=== PATIENT | male | born 1950 | race Caucasian/White ===

== ENCOUNTER 2019-09-07 08:39 | Day surgery (SDC) | payer MEDICARE, MEDICAID ==
[~2019-09-07 08:39] MED LIST: Lactated Ringers 1,000 ML IV SCH; Lidocaine 1%/Sod Bicarbonate in NS 8.4% 1 ML Syringe IDERM PRN; Sodium Chloride 0.9% 10 ML Syringe FLUSH PRN
--- NOTE | 2019-09-07 09:08 | PCM.PREANE ---
Preanesthetic Assessment - Anesthesia/Transfusion/Family Hx Anesthesia History: Prior Anesthesia Without Reaction - Review of Systems General: No Symptoms Pulmonary: No Symptoms Cardiovascular: No Symptoms Gastrointestinal: No Symptoms Neurological: Pre-Existing Deficit, Other (patient is at his baseline cognitive and neuromotor status) - Physical Assessment NPO Status Date: 09/06/19 NPO Status Time: 21:00 ASA Class: 3 Mental Status: Other (patient at his baseline cognitive status) Airway Class: Mallampati = 2 Dentition: Reports: [place](s), Broken Tooth/Teeth, Caries Thyro-Mental Finger Breadths: 3 Mouth Opening Finger Breadths: 3 ROM/Head Extension: Limited/Partial Lungs: Clear to Auscultation, Normal Respiratory Effort - Allergies Allergies/Adverse Reactions: Allergies Allergy/AdvReac Type Severity Reaction Status Date / Time acetaminophen Allergy Anaphylactic Verified 09/06/19 14:21 Shock - Blood Blood Available: No - Acknowledgements Anesthesia Type Planned: MAC Pt an Appropriate Candidate for the Planned Anesthesia: Yes Alternatives and Risks of Anesthesia Discussed w Pt/Guardian: Yes Pt/Guardian Understands and Agrees with Anesthesia Plan: Yes PreAnesthesia Questionnaire HEENT History: Reports: Impaired Vision Other HEENT History: wears glasses, myopia, presbyopia Cardiovascular History: Reports: Blood Clots/VTE/DVT, High Cholesterol Gastrointestinal History: Reports: Chronic Constipation, Hemorrhoids Genitourinary History: Reports: BPH, Chronic Renal Insuffiency, Other (See Below ) Other Genitourinary History: neurogenic bladder Musculoskeletal History: Reports: Other (See Below) Other Musculoskeletal History: abnormal gait, joint contracture, spastic hemiplegia Neurological History: Reports: Brain Injury, Cerebral Palsy, Head Trauma, Seizure Psychiatric History: Reports: Bipolar, Dementia, Depression, Other (See Below) Other Psychiatric History: Exhibitionism, insomnia Endocrine/Metabolic History: Reports: Hypothyroidism Hematologic History: Reports: None Dermatologic History: Reports: Other (See Below) Other Dermatologic History: dermatophytosis, onchomycosis - Past Surgical History Head Surgeries/Procedures: Reports: None HEENT Surgical History: Reports: None Cardiovascular Surgical History: Reports: None Respiratory Surgical History: Reports: None GI Surgical History: Reports: Colonoscopy Female Surgical History: Reports: None Male Surgical History: Reports: None Endocrine Surgical History: Reports: None Neurological Surgical History: Reports: None Musculoskeletal Surgical History: Reports: None Oncologic Surgical History: Reports: None Dermatological Surgical History: Reports: None - HOME MEDS Home Medications: Home Meds Finasteride 5 mg PO DAILY 10/03/16 [History] Levothyroxine [Synthroid] 50 mcg PO ACBREAKFAST 10/03/16 [History] OLANZapine [ZyPREXA] 10 mg PO DAILY 10/03/16 [History] Tamsulosin HCl [Flomax] 0.4 mg PO DAILY 10/03/16 [History] Baclofen 10 mg PO TID 09/06/19 [History] Bisacodyl 5 mg PO DAILY PRN 09/06/19 [History] Cyanocobalamin (Vitamin B12) [Vitamin B12] 1,000 mcg SQ Q30D 09/06/19 [History] Donepezil HCl 10 mg PO BEDTIME 09/06/19 [History] Eucalyptus Oil/Menthol/Camphor [Vicks Vaporub Ointment] 1 dose TOP ASDIRECTED PRN 09/06/19 [History] Mineral Oil/Petrolatum,White [Dermacerin] 1 dose TOP BID 09/06/19 [History] OXcarbazepine [Trileptal] 300 mg PO DAILY 09/06/19 [History] Simethicone 80 mg PO BID 09/06/19 [History] atorvaSTATin [Lipitor] 10 mg PO DAILY 09/06/19 [History] traZODone HCl [Trazodone HCl] 50 mg PO BEDTIME 09/06/19 [History] - CURRENT (IN HOUSE) MEDS Current Meds: Current Medications Lactated Ringer's (Ringers, Lactated) 1,000 mls @ 125 mls/hr IV ASDIRECTED DONNIE Stop: 09/07/19 23:00 Lidocaine/Sodium Bicarbonate (Buffered Lidocaine 1% In Ns 8.4%) 0.25 ml IDERM ONETIME PRN PRN Reason: Prior to IV Start Stop: 09/08/19 18:00 Sodium Chloride (Saline Flush) 10 ml FLUSH ASDIRECTED PRN PRN Reason: Keep Vein Open Stop: 09/08/19 18:00
[2019-09-07] MEDS ORDERED: Propofol 200 MG/20 ML SDV ONE (09:18)
[2019-09-07] MEDS ORDERED: Lidocaine 1% 2 ML ONE (09:19)
[2019-09-07] MEDS ORDERED: Glycopyrrolate 0.2 MG/ML SDV ONE ×2 (10:07→10:19)
--- NOTE | 2019-09-07 10:54 | PCM.OPNOTE ---
- General Post-Op/Procedure Note Date of Surgery/Procedure: 09/07/19 Operative Procedure(s): EGD and incomplete colonoscopy Findings: 1. gastritis with superficial erosion 2. poor prep Pre Op Diagnosis: anemia and positive FIT test Post-Op Diagnosis: same Anesthesia Technique: MAC Primary Surgeon: Letha Randolph Anesthesia Provider: Hal Garcia Snath Handle Assembler: Arnoldo Alfonso Reason Snath Handle Assembler Was Necessary: medical student Fluid Replacement, Intraop: 1,000 Output, Urine Amount: 0 EBL in mLs: 0 Complications: unable to complete colonoscopy due to very poor prep Condition: Good
--- NOTE | 2019-09-07 10:56 | PCM.PRNOTE ---
- Free Text/Narrative Note: Operative Report Date of Procedure: September 07, 2019 Pre Op Diagnosis: Anemia and positive FIT test Post-Op Diagnosis: Same Operative Procedures: 1. EGD with biopsy 2. Incomplete Colonoscopy Primary Surgeon: Letha Randolph MD Alteration Worker: Arnoldo Alfonso MS 3 Anesthesia Provider: Hal Garcia CRNA Anesthesia Technique: MAC IV Fluid Replacement, Intraop: 1000cc crystalloid Output, Urine Amount: 0cc EBL in mLs: 10cc Findings: Gastritis, poor prep Specimens: Gastric antrum Drain/Tubes: None Indication: The patient is an 68-year-old gentleman who presented to the clinic with ending this of anemia as well as positive fit test.. The patient is a resident in a shelter and did suffer a traumatic brain injury in the past. . The patient' s artery and was consented for a diagnostic EGD and colonoscopy. Risks of bleeding, and perforation were discussed, and written consent was obtained. Description of the procedure: The patient was taken back to the endoscopy suite, and placed in the left lateral decubitus position. A bite block was placed. The patient was sedated with MAC anesthesia. The Olympus video endoscope was inserted into the oropharynx and guided under direct vision into the esophagus, stomach, and duodenum. The gastric antrum was inspected and cold biopsy forceps were used to take tissue samples for H. pylori. The duodenal bulb and second portion of the duodenum were unremarkable. The scope was withdrawn to the stomach and retroflexed. There was no increased fluid, food or secretions in the upper gastrointestinal tract. There were findings of diffuse erythema. There were changes consistent with gastritis. A 1-2 mm superficial erosion was also noted in the body of the stomach. No ulcers were noted. The scope was withdrawn to the esophagus. No Barretts esophagus changes were noted. The endoscope was then withdrawn Next, anorectal examination was performed. No lesions, masses or hemorrhoids were noted externally or on palpation. The scope was placed into the rectum and we encountered liquid stool throughout the rectum. The scope was advanced to the descending colon however there was diffuse stool covering the entire mucosa. The scope was withdrawn and the procedure terminated. The patient tolerated the procedure very well. Complications: None apparent Condition: The patient was transported to PACU in stable condition. We discussed with the patient's guardian the poor preparation. We will follow up the pathology and start the patient on PPI acid suppression. We will consider further intervention based on how the patient improves. Letha Randolph MD General Surgery
--- NOTE | 2019-09-07 11:02 | PCM48HPAN ---
Post Anesthesia Note - EVALUATION WITHIN 48HRS OF ANESTHETIC Vital Signs in Normal Range: Yes Patient Participated in Evaluation: Yes Respiratory Function Stable: Yes Airway Patent: Yes Cardiovascular Function Stable: Yes Hydration Status Stable: Yes Pain Control Satisfactory: Yes Nausea and Vomiting Control Satisfactory: Yes Mental Status Recovered: Yes Vital Signs: Last Vital Signs Temp 98.2 F 09/07/19 10:48 Pulse 72 09/07/19 10:52 Resp 13 09/07/19 10:52 BP 101/76 09/07/19 10:52 Pulse Ox 98 09/07/19 10:52
[2019-09-07 12:06] VITALS: BP 138/86; PULSE 78
== END 2019-09-07 11:46 ==
LOC: JD.SDS 08:39
PROVIDERS: ATTEND Surgery
DX: D64.9 Anemia, unspecified (principal); R19.5 Other fecal abnormalities; K29.30 Chronic superficial gastritis without bleeding; B96.81 Helicobacter pylori [H. pylori] as the cause of diseases classified elsewhere; E03.9 Hypothyroidism, unspecified; F03.91 Unspecified dementia, unspecified severity, with behavioral disturbance; E78.49 Other hyperlipidemia; R47.1 Dysarthria and anarthria; N18.2 Chronic kidney disease, stage 2 (mild); N40.0 Benign prostatic hyperplasia without lower urinary tract symptoms; F32.9 Major depressive disorder, single episode, unspecified; Z80.0 Family history of malignant neoplasm of digestive organs; Z88.6 Allergy status to analgesic agent
CPT/HCPCS: 43239; 45330; J2001; J2704; J3490; J7120; 00813

== ENCOUNTER 2019-09-08 03:19 | Emergency (ER) | payer MEDICARE, MEDICAID ==
[2019-09-08] MEDS ORDERED: Sodium Chloride 0.9% 10 ML Syringe FLUSH PRN (03:36)
[2019-09-08] MEDS ORDERED: Sodium Chloride 0.9% 1,000 ML IV STA (03:36)
[2019-09-08] MEDS ORDERED: Ondansetron 4 MG/2 ML SDV IVPUSH ONE (03:36)
[2019-09-08] MEDS ORDERED: HYDROmorphone 0.5 MG/0.5 ML Syringe IVPUSH ONE (03:38)
[2019-09-08 03:39] VITALS: BP 126/66; PULSE 72
--- NOTE | 2019-09-08 05:21 | EDM.PDOC ---
ED HPI GENERAL MEDICAL PROBLEM - General Chief Complaint: Gastrointestinal Problem Stated Complaint: [facility] Time Seen by Provider: 09/08/19 03:32 Source of Information: Reports: EMS, Family, Shelter Records, Old Records History Limitations: Reports: Other (The patient is in the Geripsych unit and cannot talk) - History of Present Illness INITIAL COMMENTS - FREE TEXT/NARRATIVE: The patient presents by [facility] for abdominal pain, nausea and vomiting. The patient had an EGD done yesterday by Dr Wells and early this morning he had 4 episodes of vomiting. He also appears to be uncomfortable. He is in the [facility] at the senior care and does not talk much. He has no fever. He has no diarrhea or bowel movement. Onset: Gradual Duration: Hour(s): Location: Reports: Abdomen Severity: Moderate Improves with: Reports: None Worsens with: Reports: None Associated Symptoms: Reports: Nausea/Vomiting. Denies: Cough, Fever/Chills - Related Data Allergies Allergy/AdvReac Type Severity Reaction Status Date / Time acetaminophen Allergy Anaphylactic Verified 09/08/19 03:26 Shock Home Meds: Home Meds Finasteride 5 mg PO DAILY 10/03/16 [History] Levothyroxine [Synthroid] 50 mcg PO ACBREAKFAST 10/03/16 [History] OLANZapine [ZyPREXA] 10 mg PO DAILY 10/03/16 [History] Tamsulosin HCl [Flomax] 0.4 mg PO DAILY 10/03/16 [History] Baclofen 10 mg PO TID 09/06/19 [History] Cyanocobalamin (Vitamin B12) [Vitamin B12] 1,000 mcg SQ Q30D 09/06/19 [History] Donepezil HCl 10 mg PO BEDTIME 09/06/19 [History] OXcarbazepine [Trileptal] 300 mg PO TID 09/06/19 [History] Simethicone 80 mg PO BID 09/06/19 [History] atorvaSTATin [Lipitor] 10 mg PO DAILY 09/06/19 [History] traZODone HCl [Trazodone HCl] 50 mg PO BEDTIME 09/06/19 [History] Omeprazole 20 mg PO ACBREAKFAST 30 Days #30 cap.sr 09/07/19 [Rx] Mineral Oil/Petrolatum,White [Dermacerin] 1 dose TP TID PRN 09/08/19 [History] Past Medical History HEENT History: Reports: Impaired Vision Other HEENT History: wears glasses, myopia, presbyopia Cardiovascular History: Reports: Blood Clots/VTE/DVT, High Cholesterol Respiratory History: Reports: None Gastrointestinal History: Reports: Chronic Constipation, Hemorrhoids Genitourinary History: Reports: BPH, Chronic Renal Insuffiency, Other (See Below ) Other Genitourinary History: neurogenic bladder [employer] History: Reports: None Musculoskeletal History: Reports: Other (See Below) Other Musculoskeletal History: abnormal gait, joint contracture, spastic hemiplegia Neurological History: Reports: Brain Injury, Cerebral Palsy, Head Trauma, Seizure Psychiatric History: Reports: Bipolar, Dementia, Depression, Other (See Below) Other Psychiatric History: Exhibitionism, insomnia Endocrine/Metabolic History: Reports: Hypothyroidism Hematologic History: Reports: None Immunologic History: Reports: None Oncologic (Cancer) History: Reports: None Dermatologic History: Reports: Other (See Below) Other Dermatologic History: dermatophytosis, onchomycosis - Past Surgical History Head Surgeries/Procedures: Reports: None HEENT Surgical History: Reports: None Cardiovascular Surgical History: Reports: None Respiratory Surgical History: Reports: None GI Surgical History: Reports: Colonoscopy, EGD Male Surgical History: Reports: None Endocrine Surgical History: Reports: None Neurological Surgical History: Reports: None Musculoskeletal Surgical History: Reports: None Oncologic Surgical History: Reports: None Dermatological Surgical History: Reports: None Social & Family History - Family History Family Medical History: Noncontributory - Tobacco Use Smoking Status *Q: Unknown Ever Smoked - Caffeine Use Caffeine Use: Reports: None Other Caffeine Use: unknown - Recreational Drug Use Recreational Drug Use: No ED ROS GENERAL - Review of Systems Review Of Systems: See Below Constitutional: Reports: No Symptoms HEENT: Reports: No Symptoms Respiratory: Reports: No Symptoms Cardiovascular: Reports: No Symptoms Endocrine: Reports: No Symptoms GI/Abdominal: Reports: Abdominal Pain, Nausea, Vomiting. Denies: Diarrhea : Reports: No Symptoms Musculoskeletal: Reports: No Symptoms Skin: Reports: No Symptoms ED EXAM, GI/ABD - Physical Exam Exam: See Below Exam Limited By: Other (He does not talk) General Appearance: Alert, No Apparent Distress Ears: Normal External Exam Nose: Normal Inspection Head: Atraumatic, Normocephalic Neck: Normal Inspection Respiratory/Chest: No Respiratory Distress, Lungs Clear, Normal Breath Sounds Cardiovascular: Regular Rate, Rhythm, No Edema, No Murmur GI/Abdominal Exam: Distended, Tender (Generalized tenderness), Other ( Hyperactive bowel sounds) Back Exam: Normal Inspection Course - Vital Signs Last Recorded V/S: Last Vital Signs Temp 98.7 F 09/08/19 03:28 Pulse 72 09/08/19 03:28 Resp 20 09/08/19 03:28 BP 126/66 09/08/19 03:28 Pulse Ox 95 09/08/19 03:28 - Orders/Labs/Meds Orders: Active Orders 24 hr Category Date Time Status Bladder Scan [RC] ASDIRECTED Care 09/08/19 05:00 Active Insert Alexandra Catheter [Insert Urinary Catheter] [OM.PC] Care 09/08/19 05:15 Ordered Q24H Peripheral IV Care [RC] . DIRECTED Care 09/08/19 03:37 Active Urinary Catheter Assessment [RC] ASDIRECTED Care 09/08/19 05:25 Active Abdomen Pelvis w Cont [CT] Stat Exams 09/08/19 03:36 Taken Sodium Chloride 0.9% [Saline Flush] Med 09/08/19 03:36 Active 10 ml FLUSH ASDIRECTED PRN ED Antiemetic Medication Reflex [OM.PC] Stat Oth 09/08/19 03:36 Ordered Peripheral IV Insertion Adult [OM.PC] Stat Oth 09/08/19 03:36 Ordered Medication Orders Sodium Chloride (Saline Flush) 10 ml FLUSH ASDIRECTED PRN PRN Reason: Keep Vein Open Last Admin: 09/08/19 03:53 Dose: 10 ml Labs: Laboratory Tests 09/08/19 09/08/19 09/08/19 Range/Units 03:28 03:28 05:12 WBC 7.69 (4.23-9.07) K/mm3 RBC 3.97 L (4.63-6.08) M/mm3 Hgb 12.3 L D (13.7-17.5) gm/dl Hct 35.7 L (40.1-51.0) % MCV 89.9 (79.0-92.2) fl MCH 31.0 (25.7-32.2) pg MCHC 34.5 (32.2-35.5) g/dl RDW Std Deviation 39.3 (35.1-43.9) fL Plt Count 223 (163-337) K/mm3 MPV 9.5 (9.4-12.3) fl Neut % (Auto) 77.1 H (34.0-67.9) % Lymph % (Auto) 11.3 L (21.8-53.1) % [place] % (Auto) 9.8 (5.3-12.2) % Eos % (Auto) 1.4 (0.8-7.0) Baso % (Auto) 0.4 (0.1-1.2) % Neut # (Auto) 5.93 H (1.78-5.38) K/mm3 Lymph # (Auto) 0.87 L (1.32-3.57) K/mm3 [place] # (Auto) 0.75 (0.30-0.82) K/mm3 Eos # (Auto) 0.11 (0.04-0.54) K/mm3 Baso # (Auto) 0.03 (0.01-0.08) K/mm3 Sodium 126 L D (136-145) mEq/L Potassium 4.1 (3.5-5.1) mEq/L Chloride 94 L (98-107) mEq/L Carbon Dioxide 28 (21-32) mEq/L Anion Gap 8.1 (5-15) BUN 8 (7-18) mg/dL Creatinine 0.7 (0.7-1.3) mg/dL Est Cr Clr Drug Dosing 86.92 mL/min Estimated GFR (MDRD) > 60 (>60) mL/min BUN/Creatinine Ratio 11.4 L (14-18) Glucose 93 (80-115) mg/dL Calcium 8.0 L (8.5-10.1) mg/dL Total Bilirubin 0.5 (0.2-1.0) mg/dL AST 21 (15-37) U/L ALT 29 (16-63) U/L Alkaline Phosphatase 120 H (46-116) U/L Total Protein 5.8 L (6.4-8.2) g/dl Albumin 3.3 L (3.4-5.0) g/dl Globulin 2.5 gm/dL Albumin/Globulin Ratio 1.3 (1-2) Lipase 64 L (73-393) U/L Urine Color Light yellow (Yellow) Urine Appearance Clear (Clear) Urine pH 7.5 (5.0-8.0) Ur Specific [place] 1.015 (1.005-1.030) Urine Protein Negative (Negative) Urine Glucose (UA) Negative (Negative) Urine Ketones Negative (Negative) Urine Occult Blood Trace-intact H (Negative) Urine Nitrite Negative (Negative) Urine Bilirubin Negative (Negative) Urine Urobilinogen 0.2 (0.2-1.0) Ur Leukocyte Esterase Negative (Negative) Urine RBC 0-5 (0-5) /hpf Urine WBC 0-5 (0-5) /hpf Ur Squamous Epith Cells Not seen (0-5) /hpf Urine Bacteria Few (FEW) /hpf Urine Mucus Rare (FEW) /hpf Meds: Medications Generic Name Dose Route Start Last Admin Trade Name Freq PRN Reason Stop Dose Admin Sodium Chloride 10 ml 09/08/19 03:36 09/08/19 03:53 Saline Flush FLUSH 10 ml ASDIRECTED PRN Administration Keep Vein Open Discontinued Medications Generic Name Dose Route Start Last Admin Trade Name Freq PRN Reason Stop Dose Admin Hydromorphone HCl 0.25 mg 09/08/19 03:38 09/08/19 03:54 Dilaudid IVPUSH 09/08/19 03:39 0.25 mg ONETIME ONE Administration Sodium Chloride 1,000 mls @ 1,000 mls/hr 09/08/19 03:36 09/08/19 03:53 Normal Saline IV 09/08/19 04:35 1,000 mls/hr .BOLUS STA Administration Ondansetron HCl 4 mg 09/08/19 03:36 09/08/19 03:54 Zofran IVPUSH 09/08/19 03:37 4 mg ONETIME ONE Administration - Re-Assessments/Exams Free Text/Narrative Re-Assessment/Exam: 09/08/19 05:17 I ordered an IV NS 1L bolus, zofran 4mg IV, dilaudid, labs, UA and a CT of his abdomen and pelvis with IV and oral contrast. He could not tolerate the oral contrast so the CT was done without oral contrast. He needs nector thickened liquids. His CT shows a 1.3cm hyerdense, round mass at the bladder base. Differential considerations include small focus of clot versus small enhancing bladder mass. Recommend correlation with urinalysis results and further work up. Colonic findings suspicious for diffuse ileus. Otherwise, no significant acute process. 09/08/19 05:21 His WBC was normal. His Hgb was a little low at 12.3. His Na was low at 126. His Ca is low at 8. His alk phos is elevated at 120. His lipase is low. 09/08/19 06:18 My nurse attempted a strait cath and she could not pass it. She then put a alexandra in without difficulty and he had about 1,700mls out. His UA shows no UTI. We will have to leave the alexandra in. He will need to follow up with urology for the bladder mass and the urinary retention. I called Dr Wells about the possible ileus and she said she did do a partial colonoscopy but she had to stop because he was not prepped very well. That would explain the air. He needs to pass gas. The patient feels much better. I will discharge him back to the senior care. Departure - Departure Time of Disposition: 06:25 Disposition: Home, Self-Care 01 Condition: Good Clinical Impression: Urinary retention, Bladder mass - Discharge Information *PRESCRIPTION DRUG MONITORING PROGRAM REVIEWED*: No *COPY OF PRESCRIPTION DRUG MONITORING REPORT IN PATIENT JONNA: No Referrals: PCP,Unknown [Primary Care Provider] - Morro Henriquez MD [Physician] - 1 Week Kevyn Salas MD [Consulting Physician] - 1 Week Forms: ED Department Discharge Additional Instructions: Steve has gas in his colon from the partial colonoscopy that was done. I talked with Dr Wells and the Steve needs to move around and pass some gas. Steve could not urinate and he had about 1,700mls of urine in his bladder. The alexandra cath with need to stay in for a few days. He also had a bladder mass that will need to be worked up. He should follow up with Dr Henriquez and Dr Garcia with urology. Please return if Steve is worse. - My Orders Last 24 Hours: My Active Orders 09/08/19 03:36 Abdomen Pelvis w Cont [CT] Stat Sodium Chloride 0.9% [Saline Flush] 10 ml FLUSH ASDIRECTED PRN ED Antiemetic Medication Reflex [OM.PC] Stat Peripheral IV Insertion Adult [OM.PC] Stat 09/08/19 03:37 Peripheral IV Care [RC] . DIRECTED 09/08/19 05:00 Bladder Scan [RC] ASDIRECTED 09/08/19 05:15 Insert Alexandra Catheter [Insert Urinary Catheter] [OM.PC] Q24H 09/08/19 05:25 Urinary Catheter Assessment [RC] ASDIRECTED - Assessment/Plan Last 24 Hours: My Active Orders 09/08/19 03:36 Abdomen Pelvis w Cont [CT] Stat Sodium Chloride 0.9% [Saline Flush] 10 ml FLUSH ASDIRECTED PRN ED Antiemetic Medication Reflex [OM.PC] Stat Peripheral IV Insertion Adult [OM.PC] Stat 09/08/19 03:37 Peripheral IV Care [RC] . DIRECTED 09/08/19 05:00 Bladder Scan [RC] ASDIRECTED 09/08/19 05:15 Insert Alexandra Catheter [Insert Urinary Catheter] [OM.PC] Q24H 09/08/19 05:25 Urinary Catheter Assessment [RC] ASDIRECTED
--- NOTE | 2019-09-09 10:38 | CT ---
CT abdomen and pelvis Technique: Multiple axial sections were obtained from above the dome of the diaphragm inferiorly through the pubic symphysis. Intravenous contrast was utilized. Oral contrast was not given. Comparison: No prior CT abdomen or pelvis exam. Previous renal ultrasound study of 05/11/13. Findings: Visualized lung bases show atelectasis without anything acute. Liver contains no focal abnormality. Small hiatal hernia is noted. Spleen appears within normal limits. Adrenal glands show no nodule. Kidneys show symmetric contrast enhancement without hydronephrosis or mass. Pancreas shows no discrete abnormality. Gallbladder contains no calcified gallstones. Mild increased stool and gas noted throughout the colon. No pelvic mass or adenopathy is seen. Aorta shows no aneurysm. No retroperitoneal adenopathy is noted. No free fluid or inflammatory change is seen. Appendix is not definitely visualized. Inferior bladder shows a slightly lobulated intraluminal mass measuring 1.3 cm. Similar abnormality seen on renal ultrasound and findings highly suspicious for transitional cell carcinoma. Impression: 1. Small intraluminal bladder mass which is seen on prior ultrasound as well. As mentioned above, this is highly suspicious for a 1.3 cm transitional cell carcinoma. 2. Mild increased stool and gas within the colon possibly due to mild colonic ileus. 3. No acute finding is otherwise appreciated on CT study of the abdomen and pelvis. Diagnostic code #9 This report was dictated in [place] Standard Time I agree with preliminary report from [facility], finalized on 09/08/19, 5:33 AM Central Time
== END 2019-09-08 07:08 | disposition home or self-care (01) ==
LOC: JD.ED 03:19
DX: N32.9 Bladder disorder, unspecified (principal); R33.9 Retention of urine, unspecified; N18.9 Chronic kidney disease, unspecified; Z79.899 Other long term (current) drug therapy; Z88.1 Allergy status to other antibiotic agents
CPT/HCPCS: 36415; 51702; 51798; 74177; 80053; 81001; 83690; 85025; 96361; 96374; 96375; 99284; J1170; J2405; J7030

== ENCOUNTER 2020-03-24 09:24 | Emergency (ER) | payer MEDICARE, MEDICAID ==
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
--- NOTE | 2020-03-24 10:54 | CR ---
Chest: AP view of the chest was obtained. Comparison: No prior chest imaging is available. Heart size is normal. Tortuous thoracic aorta is noted. Scoliosis is noted within the spine. Deformity of the left clavicle compatible with old healed fracture. Lungs are clear with no acute parenchymal change. Impression: 1. Findings as noted above. 2. Nothing acute is appreciated on AP chest x-ray. Diagnostic code #2 Study was dictated in MDT
[2020-03-24] MEDS ORDERED: cefTRIAXone 1 GM, Lidocaine 1% 2.1 ML IM ONE ×2 (11:21)
[2020-03-24 11:58] VITALS: BP 142/91; PULSE 83
== END 2020-03-24 12:00 | disposition home or self-care (01) ==
LOC: JD.ED 09:24
DX: N39.0 Urinary tract infection, site not specified (principal); E78.00 Pure hypercholesterolemia, unspecified; N18.9 Chronic kidney disease, unspecified; G80.9 Cerebral palsy, unspecified; F31.9 Bipolar disorder, unspecified; F03.90 Unspecified dementia, unspecified severity, without behavioral disturbance, psychotic disturbance, mood disturbance, and anxiety; R56.9 Unspecified convulsions; E03.9 Hypothyroidism, unspecified; Z79.899 Other long term (current) drug therapy; Z88.6 Allergy status to analgesic agent
CPT/HCPCS: 36415; 71045; 80053; 81001; 84484; 85025; 86140; 87086; 87088; 87186; 93005; 96372; 99285; J0696; J2001; 93010; 99283

== ENCOUNTER 2020-03-25 01:30 | Inpatient (IN) | payer MEDICARE, MEDICAID ==
--- NOTE | 2020-03-25 01:59 | EDM.PDOC ---
ED HPI GENERAL MEDICAL PROBLEM - General Chief Complaint: Fever Stated Complaint: [facility] Time Seen by Provider: 03/25/20 01:42 Source of Information: Reports: EMS, Snf Records History Limitations: Reports: Altered Mental Status, Language Barrier - History of Present Illness INITIAL COMMENTS - FREE TEXT/NARRATIVE: This is a 69-year-old male from [facility]. 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 Apparently was seen earlier today morning and diagnosed with a UTI. This evening apparently he was running a low-grade fever of 99.6 and his heart rate went up and his pulse ox dropped so they sent him to the ER for evaluation. The patient is unable to add to this history. He does not appear to be in distress. To have him on 2 L of oxygen and his pulse ox is running in the low 90s. He does not appear to be air hungry or excessively rapid respirations. Patient will nod his head yes and no but I am not certain he actually understands what I am saying. From yesterday morning his white count was 8.48 with 77.9 neutrophils his C-reactive protein was 11. His urine did show many bacteria and he was diagnosed with a UTI. He was given 1 g Rocephin IM prior to leaving the ER. - Related Data Allergies Allergy/AdvReac Type Severity Reaction Status Date / Time acetaminophen Allergy Severe Anaphylactic Verified 03/25/20 01:38 Shock aspirin Allergy Severe Cannot Verified 03/25/20 01:38 [From Excedrin Extra Remember Strength] caffeine Allergy Severe Cannot Verified 03/25/20 01:38 [From Excedrin Extra Remember Strength] Home Meds: Home Meds Finasteride 5 mg PO DAILY 10/03/16 [History] Levothyroxine [Synthroid] 50 mcg PO ACBREAKFAST 10/03/16 [History] OLANZapine [ZyPREXA] 10 mg PO DAILY 10/03/16 [History] Tamsulosin HCl [Flomax] 0.4 mg PO DAILY 10/03/16 [History] Baclofen 10 mg PO TID 09/06/19 [History] Donepezil HCl 10 mg PO BEDTIME 09/06/19 [History] OXcarbazepine [Trileptal] 300 mg PO TID 09/06/19 [History] Simethicone 80 mg PO BID 09/06/19 [History] atorvaSTATin [Lipitor] 10 mg PO DAILY 09/06/19 [History] traZODone HCl [Trazodone HCl] 100 mg PO BEDTIME 09/06/19 [History] Omeprazole 20 mg PO ACBREAKFAST 30 Days #30 cap.sr 09/07/19 [Rx] Mineral Oil/Petrolatum,White [Dermacerin] 1 dose TP TID PRN 09/08/19 [History] cephALEXin [Keflex] 500 mg PO BID #10 capsule 03/24/20 [Rx] Past Medical History HEENT History: Reports: Impaired Vision Other HEENT History: wears glasses, myopia, presbyopia Cardiovascular History: Reports: Blood Clots/VTE/DVT, High Cholesterol Respiratory History: Reports: None Gastrointestinal History: Reports: Chronic Constipation, Hemorrhoids Genitourinary History: Reports: BPH, Chronic Renal Insuffiency, Other (See Below) Other Genitourinary History: neurogenic bladder SEISMOGRAPHER History: Reports: None Musculoskeletal History: Reports: Other (See Below) Other Musculoskeletal History: abnormal gait, joint contracture, spastic hemiplegia Neurological History: Reports: Brain Injury, Cerebral Palsy, Head Trauma, Seizure Psychiatric History: Reports: Bipolar, Dementia, Depression, Other (See Below) Other Psychiatric History: Exhibitionism, insomnia Endocrine/Metabolic History: Reports: Hypothyroidism Hematologic History: Reports: None Immunologic History: Reports: None Oncologic (Cancer) History: Reports: None Dermatologic History: Reports: Other (See Below) Other Dermatologic History: dermatophytosis, onchomycosis - Past Surgical History Head Surgeries/Procedures: Reports: None HEENT Surgical History: Reports: None Cardiovascular Surgical History: Reports: None Respiratory Surgical History: Reports: None GI Surgical History: Reports: Colonoscopy, EGD Male Surgical History: Reports: None Endocrine Surgical History: Reports: None Neurological Surgical History: Reports: None Musculoskeletal Surgical History: Reports: None Oncologic Surgical History: Reports: None Dermatological Surgical History: Reports: None Social & Family History - Family History Family Medical History: Noncontributory - Caffeine Use Caffeine Use: Reports: None Other Caffeine Use: unknown ED ROS GENERAL - Review of Systems Review Of Systems: See Below Reason Not Obtained: The patient is not able to provide an ROS due to the TBI. ED EXAM, SEPSIS - Physical Exam Exam: See Below Exam Limited By: Language Barrier General Appearance: Alert, WD/WN, No Apparent Distress Eye Exam: Bilateral Eye: Normal Inspection Ears: Normal External Exam Nose: Normal Inspection Throat/Mouth: Normal Lips, No Airway Compromise, Other (Is constantly drooling and his dental hygiene is poor) Head: Normocephalic, Other (There is evidence of previous skull damage) Neck: Limited Range of Motion Respiratory/Chest: No Respiratory Distress, Other (Lungs have decreased breath sounds in all encarnacion but I do not hear any rales or crackles or wheezing.) Cardiovascular: Regular Rate, Rhythm, No Murmur GI/Abdominal Exam: Soft, Non-Tender Back: Decreased Range of Motion Extremities: Other (His upper extremities appeared to be normal, his lower extremities especially the right lower leg is somewhat swollen compared to the left lower leg. I do not see any obvious redness or infection.) Neurological: Alert, Other (I am not able to tell whether he is oriented in any way since he is not able to verbalize well.) Psychiatric: Flat Affect Skin: Warm, Dry Course - Vital Signs Last Recorded V/S: Last Vital Signs Temp 98.3 F 03/25/20 03:08 Pulse 106 H 03/25/20 01:39 Resp 17 03/25/20 01:39 BP 136/83 03/25/20 01:39 Pulse Ox 92 L 03/25/20 01:39 - Orders/Labs/Meds Orders: Active Orders 24 hr Category Date Time Status Chest 1V Frontal [CR] Stat Exams 03/25/20 03:42 Taken CORONAVIRUS COVID-19 [facility] [[facility]] Urgent Lab 03/25/20 04:15 Received CULTURE BLOOD [BC] Stat Lab 03/25/20 02:15 Received CULTURE BLOOD [BC] Stat Lab 03/25/20 02:25 Received Meropenem Premix [Meropenem] 500 mg Med 03/25/20 04:30 Ordered Premix Bag 1 bag IV Q8H Blood Culture x2 Reflex Set [OM.PC] Stat Oth 03/25/20 01:53 Ordered Medication Orders Meropenem/Sodium Chloride 500 (mg/ Premix) 50 mls @ 100 mls/hr IV Q8H DONNIE Labs: Laboratory Tests 03/25/20 03/25/20 03/25/20 Range/Units 02:15 02:15 02:15 WBC 7.74 (4.23-9.07) K/mm3 RBC 4.64 (4.63-6.08) M/mm3 Hgb 14.0 (13.7-17.5) gm/dl Hct 43.5 (40.1-51.0) % MCV 93.8 H (79.0-92.2) fl MCH 30.2 (25.7-32.2) pg MCHC 32.2 (32.2-35.5) g/dl RDW Std Deviation 43.3 (35.1-43.9) fL Plt Count 166 (163-337) K/mm3 MPV 10.8 (9.4-12.3) fl Neut % (Auto) 76.8 H (34.0-67.9) % Lymph % (Auto) 9.3 L (21.8-53.1) % Bertie % (Auto) 12.5 H (5.3-12.2) % Eos % (Auto) 1.0 (0.8-7.0) Baso % (Auto) 0.3 (0.1-1.2) % Neut # (Auto) 5.94 H (1.78-5.38) K/mm3 Lymph # (Auto) 0.72 L (1.32-3.57) K/mm3 Bertie # (Auto) 0.97 H (0.30-0.82) K/mm3 Eos # (Auto) 0.08 (0.04-0.54) K/mm3 Baso # (Auto) 0.02 (0.01-0.08) K/mm3 Manual Slide Review Abnormal smear Puncture Site ABG pH ABG pCO2 ABG pO2 ABG HCO3 ABG O2 Saturation ABG Base Excess Connor Test A-a Gradient O2 Delivery Device Oxygen Flow Rate FiO2 Tidal Volume PEEP Pressure Support Blood Gas Comments Sodium 147 H (136-145) mEq/L Potassium 3.5 (3.5-5.1) mEq/L Chloride 110 H (98-107) mEq/L Carbon Dioxide 27 (21-32) mEq/L Anion Gap 13.5 (5-15) BUN 27 H (7-18) mg/dL Creatinine 1.0 (0.7-1.3) mg/dL Est Cr Clr Drug Dosing 64.69 mL/min Estimated GFR (MDRD) > 60 (>60) mL/min BUN/Creatinine Ratio 27.0 H (14-18) Glucose 108 (80-115) mg/dL Lactic Acid 0.7 (0.4-2.0) mmol/L Calcium 9.1 (8.5-10.1) mg/dL Total Bilirubin 0.6 (0.2-1.0) mg/dL AST 11 L (15-37) U/L ALT 15 L (16-63) U/L Alkaline Phosphatase 126 H (46-116) U/L C-Reactive Protein 10.8 H* (<1.0) mg/dL NT-Pro-B Natriuret Pep (0-125) pg/mL Total Protein 6.8 (6.4-8.2) g/dl Albumin 3.1 L (3.4-5.0) g/dl Globulin 3.7 gm/dL Albumin/Globulin Ratio 0.8 L (1-2) Urine Color (Yellow) Urine Appearance (Clear) Urine pH (5.0-8.0) Ur Specific [place] (1.005-1.030) Urine Protein (Negative) Urine Glucose (UA) (Negative) Urine Ketones (Negative) Urine Occult Blood (Negative) Urine Nitrite (Negative) Urine Bilirubin (Negative) Urine Urobilinogen (0.2-1.0) Ur Leukocyte Esterase (Negative) Urine RBC (0-5) /hpf Urine WBC (0-5) /hpf Urine WBC Clumps (NOT SEEN) /hpf Ur Transition Epith Cell (0-5) Urine Bacteria (FEW) /hpf Urine Mucus (FEW) /hpf 03/25/20 03/25/20 03/25/20 Range/Units 02:15 02:46 03:15 WBC (4.23-9.07) K/mm3 RBC (4.63-6.08) M/mm3 Hgb (13.7-17.5) gm/dl Hct (40.1-51.0) % MCV (79.0-92.2) fl MCH (25.7-32.2) pg MCHC (32.2-35.5) g/dl RDW Std Deviation (35.1-43.9) fL Plt Count (163-337) K/mm3 MPV (9.4-12.3) fl Neut % (Auto) (34.0-67.9) % Lymph % (Auto) (21.8-53.1) % Bertie % (Auto) (5.3-12.2) % Eos % (Auto) (0.8-7.0) Baso % (Auto) (0.1-1.2) % Neut # (Auto) (1.78-5.38) K/mm3 Lymph # (Auto) (1.32-3.57) K/mm3 Bertie # (Auto) (0.30-0.82) K/mm3 Eos # (Auto) (0.04-0.54) K/mm3 Baso # (Auto) (0.01-0.08) K/mm3 Manual Slide Review Puncture Site Cancelled ABG pH Cancelled ABG pCO2 Cancelled ABG pO2 Cancelled ABG HCO3 Cancelled ABG O2 Saturation Cancelled ABG Base Excess Cancelled Connor Test Cancelled A-a Gradient Cancelled O2 Delivery Device Cancelled Oxygen Flow Rate Cancelled FiO2 Cancelled Tidal Volume Cancelled PEEP Cancelled Pressure Support Cancelled Blood Gas Comments Cancelled Sodium (136-145) mEq/L Potassium (3.5-5.1) mEq/L Chloride (98-107) mEq/L Carbon Dioxide (21-32) mEq/L Anion Gap (5-15) BUN (7-18) mg/dL Creatinine (0.7-1.3) mg/dL Est Cr Clr Drug Dosing mL/min Estimated GFR (MDRD) (>60) mL/min BUN/Creatinine Ratio (14-18) Glucose (80-115) mg/dL Lactic Acid (0.4-2.0) mmol/L Calcium (8.5-10.1) mg/dL Total Bilirubin (0.2-1.0) mg/dL AST (15-37) U/L ALT (16-63) U/L Alkaline Phosphatase (46-116) U/L C-Reactive Protein (<1.0) mg/dL NT-Pro-B Natriuret Pep 515 H (0-125) pg/mL Total Protein (6.4-8.2) g/dl Albumin (3.4-5.0) g/dl Globulin gm/dL Albumin/Globulin Ratio (1-2) Urine Color Lupe H (Yellow) Urine Appearance Slt cloudy H (Clear) Urine pH 6.0 (5.0-8.0) Ur Specific [place] > or = 1.030 (1.005-1.030) Urine Protein 3+ H (Negative) Urine Glucose (UA) Negative (Negative) Urine Ketones 3+ H (Negative) Urine Occult Blood 3+ H (Negative) Urine Nitrite Negative (Negative) Urine Bilirubin 1+ H (Negative) Urine Urobilinogen 1.0 (0.2-1.0) Ur Leukocyte Esterase 1+ H (Negative) Urine RBC 40-50 H (0-5) /hpf Urine WBC 20-30 H (0-5) /hpf Urine WBC Clumps Few (NOT SEEN) /hpf Ur Transition Epith Cell 0-5 (0-5) Urine Bacteria Many H (FEW) /hpf Urine Mucus Few (FEW) /hpf / Range/Units 03:25 WBC (4.23-9.07) K/mm3 RBC (4.63-6.08) M/mm3 Hgb (13.7-17.5) gm/dl Hct (40.1-51.0) % MCV (79.0-92.2) fl MCH (25.7-32.2) pg MCHC (32.2-35.5) g/dl RDW Std Deviation (35.1-43.9) fL Plt Count (163-337) K/mm3 MPV (9.4-12.3) fl Neut % (Auto) (34.0-67.9) % Lymph % (Auto) (21.8-53.1) % Bertie % (Auto) (5.3-12.2) % Eos % (Auto) (0.8-7.0) Baso % (Auto) (0.1-1.2) % Neut # (Auto) (1.78-5.38) K/mm3 Lymph # (Auto) (1.32-3.57) K/mm3 Bertie # (Auto) (0.30-0.82) K/mm3 Eos # (Auto) (0.04-0.54) K/mm3 Baso # (Auto) (0.01-0.08) K/mm3 Manual Slide Review Puncture Site Rt radial ABG pH 7.42 ABG pCO2 42.5 ABG pO2 57.0 L ABG HCO3 27 H ABG O2 Saturation 85.1 L ABG Base Excess 2.6 H Connor Test positive A-a Gradient 40 O2 Delivery Device Room air Oxygen Flow Rate FiO2 21.00 Tidal Volume PEEP Pressure Support Blood Gas Comments Sodium (136-145) mEq/L Potassium (3.5-5.1) mEq/L Chloride (98-107) mEq/L Carbon Dioxide (21-32) mEq/L Anion Gap (5-15) BUN (7-18) mg/dL Creatinine (0.7-1.3) mg/dL Est Cr Clr Drug Dosing mL/min Estimated GFR (MDRD) (>60) mL/min BUN/Creatinine Ratio (14-18) Glucose (80-115) mg/dL Lactic Acid (0.4-2.0) mmol/L Calcium (8.5-10.1) mg/dL Total Bilirubin (0.2-1.0) mg/dL AST (15-37) U/L ALT (16-63) U/L Alkaline Phosphatase (46-116) U/L C-Reactive Protein (<1.0) mg/dL NT-Pro-B Natriuret Pep (0-125) pg/mL Total Protein (6.4-8.2) g/dl Albumin (3.4-5.0) g/dl Globulin gm/dL Albumin/Globulin Ratio (1-2) Urine Color (Yellow) Urine Appearance (Clear) Urine pH (5.0-8.0) Ur Specific [place] (1.005-1.030) Urine Protein (Negative) Urine Glucose (UA) (Negative) Urine Ketones (Negative) Urine Occult Blood (Negative) Urine Nitrite (Negative) Urine Bilirubin (Negative) Urine Urobilinogen (0.2-1.0) Ur Leukocyte Esterase (Negative) Urine RBC (0-5) /hpf Urine WBC (0-5) /hpf Urine WBC Clumps (NOT SEEN) /hpf Ur Transition Epith Cell (0-5) Urine Bacteria (FEW) /hpf Urine Mucus (FEW) /hpf Meds: Medications Generic Name Dose Route Start Last Admin Trade Name Freq PRN Reason Stop Dose Admin Meropenem/Sodium Chloride 500 50 mls @ 100 mls/hr 03/25/20 04:30 mg/ Premix IV Q8H DONNIE Discontinued Medications Generic Name Dose Route Start Last Admin Trade Name Freq PRN Reason Stop Dose Admin Ceftriaxone Sodium 2 gm/ 100 mls @ 200 mls/hr 03/25/20 03:21 Sodium Chloride IV 03/25/20 03:50 ONETIME ONE Ceftriaxone Sodium 2 gm/ 100 mls @ 200 mls/hr 03/25/20 03:25 03/25/20 03:30 Sodium Chloride IV 03/25/20 03:54 200 mls/hr ONETIME ONE Administration - Re-Assessments/Exams Free Text/Narrative Re-Assessment/Exam: 03/25/20 03:29 The first blood gas that we got was venous so we will attempt to get an arterial blood gas this time. 03/25/20 04:[address] Cedeno regarding the patient's low oxygen level. I am not seeing why this would occur except does have a tremendous difficult time controlling his secretions. When he did cough and try to get a better breath lots of mucus came up from his throat. His BNP is only 515 his lactic acid is 0.7 white count is normal. His C-reactive protein is 10.8 which is slightly better than yesterday's. His neutrophils are 76.8. His urine still shows many bacteria and white cells. Dr. Cedeno agrees to admit the patient for further evaluation and treatment. Departure - Departure Time of Disposition: 04:31 Disposition: Admitted As Inpatient 68 Condition: Poor Clinical Impression: Hypoxemia, Hypernatremia, Elevated C-reactive protein Urinary tract infection Qualifiers: Urinary tract infection type: site unspecified Hematuria presence: without he maturia Qualified Code(s): N39.0 - Urinary tract infection, site not specified - Discharge Information Sepsis Event Note (ED) - Evaluation Sepsis Screening Result: No Definite Risk - Focused Exam Vital Signs: Vital Signs Temp Pulse Resp BP Pulse Ox 03/25/20 03:08 98.3 F 03/25/20 01:39 98.8 F 106 H 17 136/83 92 L ED Communication - ED Communication Date/Time Date: 03/25/20 Time Called: 04:30 - Discussed Case With (1) Discussed Case With (1): Admitting Provider Person/s Notified (1): Dexter Mason III (Agrees to admit for further evaluation and treatment) - My Orders Last 24 Hours: My Active Orders 03/25/20 01:53 Blood Culture x2 Reflex Set [OM.PC] Stat 03/25/20 02:15 CULTURE BLOOD [BC] Stat 03/25/20 02:25 CULTURE BLOOD [BC] Stat 03/25/20 03:42 Chest 1V Frontal [CR] Stat 03/25/20 04:15 CORONAVIRUS COVID-19 [facility] [[facility]] Urgent 03/25/20 04:30 Meropenem Premix [Meropenem] 500 mg Premix Bag 1 bag IV Q8H - Assessment/Plan Last 24 Hours: My Active Orders 03/25/20 01:53 Blood Culture x2 Reflex Set [OM.PC] Stat 03/25/20 02:15 CULTURE BLOOD [BC] Stat 03/25/20 02:25 CULTURE BLOOD [BC] Stat 03/25/20 03:42 Chest 1V Frontal [CR] Stat 03/25/20 04:15 CORONAVIRUS COVID-19 [facility] [[facility]] Urgent 03/25/20 04:30 Meropenem Premix [Meropenem] 500 mg Premix Bag 1 bag IV Q8H
[2020-03-25] MEDS ORDERED: cefTRIAXone 2 GM in Sodium Chloride 0.9% 100 ML IV ONE ×2 (03:21→03:25)
[2020-03-25] MEDS ORDERED: Meropenem Premix 500 MG in Premix Bag 1 BAG IV SCH (04:30)
[2020-03-25] MEDS ORDERED: Sodium Chloride 0.45% 1,000 ML IV SCH (06:00)
[2020-03-25] MEDS ORDERED: Dicyclomine 10 MG Cap PO PRN (08:54)
[2020-03-25] MEDS ORDERED: Bisacodyl 5 MG Tab PO PRN (08:54)
--- NOTE | 2020-03-25 09:01 | PCM.HP.2 ---
H&P History of Present Illness - General Date of Service: 03/25/20 Admit Problem/Dx: Admission Diagnosis/Problem Admission Diagnosis/Problem Hypoxia History Limitations: Reports: Physical Impairment - History of Present Illness Initial Comments - Free Text/Narative: 69-year-old male with history of TBI from [facility] presented to the emergency department early this morning secondary to a low-grade fever and hypoxemia. Patient has difficulty communicating secondary to his TBI and he aring loss. Much of the history was obtained through emergency department notes. Apparently patient was running a temperature of 99.6 at [facility] and he had increase in his heart rate and a decrease in his pulse ox. Patient required 2 L of oxygen via nasal cannula but continued to have oxygenation saturations in the low 90s. Patient was seen yesterday in the emergency department with a UTI and given 1 g Rocephin IM and sent home on Keflex. Yesterday morning his white count was 8.48 with 77.9% neutrophils and his C- reactive protein was 11. In the emergency department patient was found to be hypoxemic requiring 3 L to get his oxygen saturations above 92%. He had large amounts of respiratory secretions which apparently is chronic. Pulse was 106 with a temperature of 98.3. Respiratory rate of 17 and he looked comfortable. Have a white count of 7.74 this morning with 76.8% neutrophils and absolute neutrophil count of 5.94. No bands noted. C-reactive protein was 10.8 and lactic acid was 0.7. Patient was found to be slightly hyponatremic with a sodium of 147 and chloride of 110. Potassium was low normal at 3.5. Anion gap of 13.5. BUN was slightly elevated at 27 with a creatinine of 1.0 suggesting hypovolemia, and an estimated GFR of greater than 60. Liver enzymes were low. Albumin 3.1. proBNP was slightly elevated at 515. COVID screen was negative and MRSA screen was negative. Patient was initially given 2 more grams of Rocephin, but at my suggestion was started on meropenem. Chest x-ray showed no acute infiltrate. ABG: pH 7.42, PCO2 of 42.5, PO2 57, bicarb 27, oxygen saturation 85% on room air. UA continued to have significant signs of infection including WBC of 20-30 and many bacteria. Patient was then transferred to the floor for further treatment. Review of his previous emergency room visit in September [address] scan with a small intraluminal bladder mass. It is highly suspicious for a 1.3 cm transitional cell carcinoma. - Related Data Allergies/Adverse Reactions: Allergies Allergy/AdvReac Type Severity Reaction Status Date / Time acetaminophen Allergy Severe Anaphylactic Verified 03/25/20 01:38 Shock aspirin Allergy Severe Cannot Verified 03/25/20 01:38 [From Excedrin Extra Remember Strength] caffeine Allergy Severe Cannot Verified 03/25/20 01:38 [From Excedrin Extra Remember Strength] Home Medications: Home Meds Finasteride 5 mg PO DAILY 10/03/16 [History] Levothyroxine [Synthroid] 50 mcg PO ACBREAKFAST 10/03/16 [History] OLANZapine [ZyPREXA] 10 mg PO QPM 10/03/16 [History] Tamsulosin HCl [Flomax] 0.4 mg PO DAILY 10/03/16 [History] Baclofen 10 mg PO TID 09/06/19 [History] Donepezil HCl 10 mg PO BEDTIME 09/06/19 [History] OXcarbazepine [Trileptal] 300 mg PO TID 09/06/19 [History] Simethicone 80 mg PO BID 09/06/19 [History] atorvaSTATin [Lipitor] 10 mg PO DAILY 09/06/19 [History] traZODone HCl [Trazodone HCl] 100 mg PO BEDTIME 09/06/19 [History] Omeprazole 20 mg PO ACBREAKFAST 30 Days #30 cap.sr 09/07/19 [Rx] Mineral Oil/Petrolatum,White [Dermacerin] 1 dose TP TID PRN 09/08/19 [History] cephALEXin [Keflex] 500 mg PO BID #10 capsule 03/24/20 [Rx] Dextromethorphan/guaiFENesin [Robitussin DM] 5 ml PO Q4H PRN 03/25/20 [History] Dicyclomine [Bentyl] 10 mg PO TID PRN 03/25/20 [History] Eucalyptus Oil/Menthol/Camphor [Vicks Vaporub Ointment] 50 gm TP TID 03/25/20 [History] Lactobacillus Acidophilus [Acidophilus Lactobacilli] 1 each PO DAILY 03/25/20 [History] Mineral Oil/Petrolatum,White [Dermacerin] 107 gm TP ASDIRECTED PRN 03/25/20 [History] Scopolamine 1 each TD Q3D 03/25/20 [History] bisacodyL [Bisacodyl] 5 mg PO DAILY PRN 03/25/20 [History] Past Medical History HEENT History: Reports: Impaired Vision Other HEENT History: wears glasses, myopia, presbyopia Cardiovascular History: Reports: Blood Clots/VTE/DVT, High Cholesterol Respiratory History: Reports: None Gastrointestinal History: Reports: Chronic Constipation, Hemorrhoids Genitourinary History: Reports: BPH, Chronic Renal Insuffiency, Neurogenic Bladder, UTI, Recurrent Other Genitourinary History: neurogenic bladder SENIOR LITIGATION PARALEGAL History: Reports: None Musculoskeletal History: Reports: Other (See Below) Other Musculoskeletal History: abnormal gait, joint contracture, spastic hemiplegia Neurological History: Reports: Brain Injury, Cerebral Palsy, Head Trauma, Seizure Psychiatric History: Reports: Bipolar, Dementia, Depression, Other (See Below) Other Psychiatric History: Exhibitionism, insomnia Endocrine/Metabolic History: Reports: Hypothyroidism Hematologic History: Reports: None Immunologic History: Reports: None Oncologic (Cancer) History: Reports: None Dermatologic History: Reports: Other (See Below) Other Dermatologic History: dermatophytosis, onchomycosis - Infectious Disease History Infectious Disease History: Reports: Other (See Below) Other Infectious Disease History: Unknown - Past Surgical History Head Surgeries/Procedures: Reports: None HEENT Surgical History: Reports: None Cardiovascular Surgical History: Reports: None Respiratory Surgical History: Reports: None GI Surgical History: Reports: Colonoscopy, EGD Male Surgical History: Reports: Other (See Below) Other Male Surgeries/Procedures: Bladder mass removed Endocrine Surgical History: Reports: None Neurological Surgical History: Reports: None Musculoskeletal Surgical History: Reports: None Oncologic Surgical History: Reports: None Dermatological Surgical History: Reports: None Social & Family History - Family History Family Medical History: Noncontributory - Tobacco Use Smoking Status *Q: Unknown Ever Smoked - Caffeine Use Caffeine Use: Reports: None Other Caffeine Use: unknown - Recreational Drug Use Recreational Drug Use: No H&P Review of Systems - Review of Systems: Review Of Systems: Unable To Obtain Reason Not Obtained: TBI Exam - Exam Exam: See Below - Vital Signs Vital Signs: Last Vital Signs Temp 98.3 F 03/25/20 03:08 Pulse 106 H 03/25/20 01:39 Resp 17 03/25/20 01:39 BP 136/83 03/25/20 01:39 Pulse Ox 92 L 03/25/20 01:39 Weight: 69.853 kg - Exam Quality Assessment: Supplemental Oxygen General: Alert HEENT: Conjunctiva Clear, EOMI, Hearing Intact, Mucosa Moist & Eleva Neck: Supple, Trachea Midline, 2 Lungs: Clear to Auscultation, Normal Respiratory Effort, Other (Some upper airway noise making auscultation more difficult) Cardiovascular: Regular Rate, Regular Rhythm GI/Abdominal Exam: Normal Bowel Sounds, Soft, Non-Tender, No Organomegaly, No Distention, No Abnormal Bruit, No Mass Extremities: Normal Inspection, Normal Range of Motion, Non-Tender, No Pedal Edema, Normal Capillary Refill Peripheral Pulses: 1+: Posterior Tibial (L), Posterior Tibial (R), Dorsalis Pedis (L), Dorsalis Pedis (R) Skin: Warm, Dry, Intact Neurological: Cranial Nerves Intact Neuro Extensive - Mental Status: Alert, Normal Mood/Affect. No: Normal Cognition Psychiatric: Alert, Normal Affect, Normal Mood - Patient Data Lab Results Last 24 hrs: Laboratory Results - last 24 hr 03/25/20 03/25/20 03/25/20 Range/Units 02:15 02:15 02:15 WBC 7.74 (4.23-9.07) K/mm3 RBC 4.64 (4.63-6.08) M/mm3 Hgb 14.0 (13.7-17.5) gm/dl Hct 43.5 (40.1-51.0) % MCV 93.8 H (79.0-92.2) fl MCH 30.2 (25.7-32.2) pg MCHC 32.2 (32.2-35.5) g/dl RDW Std Deviation 43.3 (35.1-43.9) fL Plt Count 166 (163-337) K/mm3 MPV 10.8 (9.4-12.3) fl Neut % (Auto) 76.8 H (34.0-67.9) % Lymph % (Auto) 9.3 L (21.8-53.1) % [place] % (Auto) 12.5 H (5.3-12.2) % Eos % (Auto) 1.0 (0.8-7.0) Baso % (Auto) 0.3 (0.1-1.2) % Neut # (Auto) 5.94 H (1.78-5.38) K/mm3 Lymph # (Auto) 0.72 L (1.32-3.57) K/mm3 [place] # (Auto) 0.97 H (0.30-0.82) K/mm3 Eos # (Auto) 0.08 (0.04-0.54) K/mm3 Baso # (Auto) 0.02 (0.01-0.08) K/mm3 Manual Slide Review Abnormal smear Puncture Site ABG pH ABG pCO2 ABG pO2 ABG HCO3 ABG O2 Saturation ABG Base Excess Connor Test A-a Gradient O2 Delivery Device Oxygen Flow Rate FiO2 Tidal Volume PEEP Pressure Support Blood Gas Comments Sodium 147 H (136-145) mEq/L Potassium 3.5 (3.5-5.1) mEq/L Chloride 110 H (98-107) mEq/L Carbon Dioxide 27 (21-32) mEq/L Anion Gap 13.5 (5-15) BUN 27 H (7-18) mg/dL Creatinine 1.0 (0.7-1.3) mg/dL Est Cr Clr Drug Dosing 64.69 mL/min Estimated GFR (MDRD) > 60 (>60) mL/min BUN/Creatinine Ratio 27.0 H (14-18) Glucose 108 (80-115) mg/dL Lactic Acid 0.7 (0.4-2.0) mmol/L Calcium 9.1 (8.5-10.1) mg/dL Total Bilirubin 0.6 (0.2-1.0) mg/dL AST 11 L (15-37) U/L ALT 15 L (16-63) U/L Alkaline Phosphatase 126 H (46-116) U/L C-Reactive Protein 10.8 H* (<1.0) mg/dL NT-Pro-B Natriuret Pep (0-125) pg/mL Total Protein 6.8 (6.4-8.2) g/dl Albumin 3.1 L (3.4-5.0) g/dl Globulin 3.7 gm/dL Albumin/Globulin Ratio 0.8 L (1-2) Urine Color (Yellow) Urine Appearance (Clear) Urine pH (5.0-8.0) Ur Specific [place] (1.005-1.030) Urine Protein (Negative) Urine Glucose (UA) (Negative) Urine Ketones (Negative) Urine Occult Blood (Negative) Urine Nitrite (Negative) Urine Bilirubin (Negative) Urine Urobilinogen (0.2-1.0) Ur Leukocyte Esterase (Negative) Urine RBC (0-5) /hpf Urine WBC (0-5) /hpf Urine WBC Clumps (NOT SEEN) /hpf Ur Transition Epith Cell (0-5) Urine Bacteria (FEW) /hpf Urine Mucus (FEW) /hpf SARS Virus RNA (PCR) (NEGATIVE) MRSA (PCR) 03/25/20 03/25/20 03/25/20 Range/Units 02:15 02:46 03:15 WBC (4.23-9.07) K/mm3 RBC (4.63-6.08) M/mm3 Hgb (13.7-17.5) gm/dl Hct (40.1-51.0) % MCV (79.0-92.2) fl MCH (25.7-32.2) pg MCHC (32.2-35.5) g/dl RDW Std Deviation (35.1-43.9) fL Plt Count (163-337) K/mm3 MPV (9.4-12.3) fl Neut % (Auto) (34.0-67.9) % Lymph % (Auto) (21.8-53.1) % [place] % (Auto) (5.3-12.2) % Eos % (Auto) (0.8-7.0) Baso % (Auto) (0.1-1.2) % Neut # (Auto) (1.78-5.38) K/mm3 Lymph # (Auto) (1.32-3.57) K/mm3 [place] # (Auto) (0.30-0.82) K/mm3 Eos # (Auto) (0.04-0.54) K/mm3 Baso # (Auto) (0.01-0.08) K/mm3 Manual Slide Review Puncture Site Cancelled ABG pH Cancelled ABG pCO2 Cancelled ABG pO2 Cancelled ABG HCO3 Cancelled ABG O2 Saturation Cancelled ABG Base Excess Cancelled Connor Test Cancelled A-a Gradient Cancelled O2 Delivery Device Cancelled Oxygen Flow Rate Cancelled FiO2 Cancelled Tidal Volume Cancelled PEEP Cancelled Pressure Support Cancelled Blood Gas Comments Cancelled Sodium (136-145) mEq/L Potassium (3.5-5.1) mEq/L Chloride (98-107) mEq/L Carbon Dioxide (21-32) mEq/L Anion Gap (5-15) BUN (7-18) mg/dL Creatinine (0.7-1.3) mg/dL Est Cr Clr Drug Dosing mL/min Estimated GFR (MDRD) (>60) mL/min BUN/Creatinine Ratio (14-18) Glucose (80-115) mg/dL Lactic Acid (0.4-2.0) mmol/L Calcium (8.5-10.1) mg/dL Total Bilirubin (0.2-1.0) mg/dL AST (15-37) U/L ALT (16-63) U/L Alkaline Phosphatase (46-116) U/L C-Reactive Protein (<1.0) mg/dL NT-Pro-B Natriuret Pep 515 H (0-125) pg/mL Total Protein (6.4-8.2) g/dl Albumin (3.4-5.0) g/dl Globulin gm/dL Albumin/Globulin Ratio (1-2) Urine Color Lupe H (Yellow) Urine Appearance Slt cloudy H (Clear) Urine pH 6.0 (5.0-8.0) Ur Specific [place] > or = 1.030 (1.005-1.030) Urine Protein 3+ H (Negative) Urine Glucose (UA) Negative (Negative) Urine Ketones 3+ H (Negative) Urine Occult Blood 3+ H (Negative) Urine Nitrite Negative (Negative) Urine Bilirubin 1+ H (Negative) Urine Urobilinogen 1.0 (0.2-1.0) Ur Leukocyte Esterase 1+ H (Negative) Urine RBC 40-50 H (0-5) /hpf Urine WBC 20-30 H (0-5) /hpf Urine WBC Clumps Few (NOT SEEN) /hpf Ur Transition Epith Cell 0-5 (0-5) Urine Bacteria Many H (FEW) /hpf Urine Mucus Few (FEW) /hpf SARS Virus RNA (PCR) (NEGATIVE) MRSA (PCR) 03/25/20 03/25/20 03/25/20 Range/Units 03:25 04:15 05:45 WBC (4.23-9.07) K/mm3 RBC (4.63-6.08) M/mm3 Hgb (13.7-17.5) gm/dl Hct (40.1-51.0) % MCV (79.0-92.2) fl MCH (25.7-32.2) pg MCHC (32.2-35.5) g/dl RDW Std Deviation (35.1-43.9) fL Plt Count (163-337) K/mm3 MPV (9.4-12.3) fl Neut % (Auto) (34.0-67.9) % Lymph % (Auto) (21.8-53.1) % [place] % (Auto) (5.3-12.2) % Eos % (Auto) (0.8-7.0) Baso % (Auto) (0.1-1.2) % Neut # (Auto) (1.78-5.38) K/mm3 Lymph # (Auto) (1.32-3.57) K/mm3 [place] # (Auto) (0.30-0.82) K/mm3 Eos # (Auto) (0.04-0.54) K/mm3 Baso # (Auto) (0.01-0.08) K/mm3 Manual Slide Review Puncture Site Rt radial ABG pH 7.42 ABG pCO2 42.5 ABG pO2 57.0 L ABG HCO3 27 H ABG O2 Saturation 85.1 L ABG Base Excess 2.6 H Connor Test positive A-a Gradient 40 O2 Delivery Device Room air Oxygen Flow Rate FiO2 21.00 Tidal Volume PEEP Pressure Support Blood Gas Comments Sodium (136-145) mEq/L Potassium (3.5-5.1) mEq/L Chloride (98-107) mEq/L Carbon Dioxide (21-32) mEq/L Anion Gap (5-15) BUN (7-18) mg/dL Creatinine (0.7-1.3) mg/dL Est Cr Clr Drug Dosing mL/min Estimated GFR (MDRD) (>60) mL/min BUN/Creatinine Ratio (14-18) Glucose (80-115) mg/dL Lactic Acid (0.4-2.0) mmol/L Calcium (8.5-10.1) mg/dL Total Bilirubin (0.2-1.0) mg/dL AST (15-37) U/L ALT (16-63) U/L Alkaline Phosphatase (46-116) U/L C-Reactive Protein (<1.0) mg/dL NT-Pro-B Natriuret Pep (0-125) pg/mL Total Protein (6.4-8.2) g/dl Albumin (3.4-5.0) g/dl Globulin gm/dL Albumin/Globulin Ratio (1-2) Urine Color (Yellow) Urine Appearance (Clear) Urine pH (5.0-8.0) Ur Specific [place] (1.005-1.030) Urine Protein (Negative) Urine Glucose (UA) (Negative) Urine Ketones (Negative) Urine Occult Blood (Negative) Urine Nitrite (Negative) Urine Bilirubin (Negative) Urine Urobilinogen (0.2-1.0) Ur Leukocyte Esterase (Negative) Urine RBC (0-5) /hpf Urine WBC (0-5) /hpf Urine WBC Clumps (NOT SEEN) /hpf Ur Transition Epith Cell (0-5) Urine Bacteria (FEW) /hpf Urine Mucus (FEW) /hpf SARS Virus RNA (PCR) Negative (NEGATIVE) MRSA (PCR) Negative Result Diagrams: 03/25/20 09:20 03/25/20 02:15 Vick Results Last 24 hrs: Microbiology 03/25/20 02:25 Anaerobic Blood Culture - Final Blood - Venous - Lab Draw Sepsis Event Note - Evaluation Sepsis Screening Result: No Definite Risk - Focused Exam Vital Signs: Vital Signs Temp Pulse Resp BP Pulse Ox 03/25/20 03:08 98.3 F 03/25/20 01:39 98.8 F 106 H 17 136/83 92 L Date Exam was Performed: 03/25/20 Time Exam was Performed: 11:07 Problem List Initiated/Reviewed/Updated: Yes Orders Last 24hrs: Active Orders 24 hr Category Date Time Status Patient Status [ADT] Routine ADT 03/25/20 04:40 Active Oxygen Therapy Adult [Oxygen Therapy] [RC] ASDIRECTED Care 03/25/20 05:54 Active Up With Assistance [RC] BID Care 03/25/20 05:52 Active Fluid Restriction [DIET] Diet 03/25/20 Breakfast Active National Dysphagia Diet [DIET] Diet 03/25/20 Breakfast Active Chest 1V Frontal [CR] Stat Exams 03/25/20 03:42 Taken CULTURE BLOOD [BC] Stat Lab 03/25/20 02:15 Received CULTURE BLOOD [BC] Stat Lab 03/25/20 02:25 Results Baclofen [Lioresal] Med 03/25/20 09:00 Ordered 10 mg PO TID Dicyclomine [Bentyl] Med 03/25/20 08:54 Ordered 10 mg PO TID PRN Donepezil [Aricept] Med 03/25/20 21:00 Ordered 10 mg PO BEDTIME Finasteride [Proscar] Med 03/25/20 09:00 Ordered 5 mg PO DAILY Levothyroxine [Synthroid] Med 03/26/20 06:00 Ordered 50 mcg PO ACBREAKFAST Meropenem Premix [Meropenem] 500 mg Med 03/25/20 04:30 Active Premix Bag 1 bag IV Q8H OLANZapine Med 03/25/20 18:00 Ordered 10 mg PO QPM OXcarbazepine [Trileptal] Med 03/25/20 09:00 Ordered 300 mg PO TID Omeprazole Med 03/26/20 06:00 Ordered 20 mg PO ACBREAKFAST Scopolamine [Transderm-Scop] Med 03/25/20 09:00 Ordered DOSE mg TRDERM Q3D Simethicone Med 03/25/20 09:00 Ordered 80 mg PO BID Sodium Chloride 0.45% 1,000 ml Med 03/25/20 06:00 Active IV ASDIRECTED Tamsulosin [Flomax] Med 03/25/20 09:00 Ordered 0.4 mg PO DAILY atorvaSTATin Med 03/25/20 09:00 Ordered 10 mg PO DAILY bisacodyL [Dulcolax] Med 03/25/20 08:54 Ordered 5 mg PO DAILY PRN traZODone Med 03/25/20 21:00 Ordered 100 mg PO BEDTIME Blood Culture x2 Reflex Set [OM.PC] Stat Oth 03/25/20 01:53 Ordered Code Status [Resuscitation Status] Routine Resus Stat 03/25/20 05:51 Ordered Medication Orders Baclofen (Lioresal) 10 mg PO TID DONNIE Bisacodyl (Dulcolax) 5 mg PO DAILY PRN PRN Reason: Constipation Dicyclomine HCl (Bentyl) 10 mg PO TID PRN PRN Reason: IBS Donepezil HCl (Aricept) 10 mg PO BEDTIME DONNIE Finasteride (Proscar) 5 mg PO DAILY DONNIE Meropenem/Sodium Chloride 500 (mg/ Premix) 50 mls @ 100 mls/hr IV Q8H [facility] Last Admin: 03/25/20 04:49 Dose: 100 mls/hr Documented by: BRISSA Sodium Chloride (Sodium Chloride 0.45%) 1,000 mls @ 125 mls/hr IV ASDIRECTED [facility] Last Admin: 03/25/20 06:52 Dose: 125 mls/hr Documented by: GALEN Levothyroxine Sodium (Synthroid) 50 mcg PO ACBREAKFAST DONNIE Non-Formulary Medication (Atorvastatin) 10 mg PO DAILY DONNIE Non-Formulary Medication (Olanzapine) 10 mg PO QPM DONNIE Non-Formulary Medication (Omeprazole) 20 mg PO ACBREAKFAST DONNIE Oxcarbazepine (Trileptal) 300 mg PO TID DONNIE Scopolamine (Transderm-Scop) mg TRDERM Q3D DONNIE Simethicone (Simethicone) 80 mg PO BID DONNIE Tamsulosin HCl (Flomax) 0.4 mg PO DAILY DONNIE Trazodone HCl (Trazodone) 100 mg PO BEDTIME [facility] Assessment/Plan Comment:: Complicated UTI * Patient with history of fever and tachycardia. * Requiring 3 L nasal cannula for oxygenation * No signs of sepsis * Lives in a long-term care facility/assisted Plan * Admit to medical floor * Meropenem 1 g every 8 hours * Await urine and blood cultures. * Follow CBC Hypoxemia * Possibly secondary to aspiration, but normal chest x-ray at this time. * Requiring 3 L nasal cannula for oxygenation * Patient with history of copious amounts of oral secretions Plan * Pulmonary toilet to improve secretions * Albuterol and ipratropium bromide nebulizers every 6 hours and albuterol nebulizer every 2 hours as needed * Repeat chest x-ray tomorrow * FiO2 to keep SPO2 greater than 92% * Continue home meds which includes scopolamine patch for secretions. Hypernatremia/dehydration * Sodium of 147 on presentation to the emergency department * Concerns for poor oral intake causing volume depletion and dehydration * Could be the cause of his tachycardia. 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 VTE prophylaxis with Lovenox CODE STATUS: DNR Disposition: Admit to floor. - Mortality Measure Prognosis:: Good
[2020-03-25] MEDS ORDERED: Albuterol 0.083% 2.5 MG/3 ML Neb Soln NEB PRN (10:11)
[2020-03-25] MEDS: OXcarbazepine 300 MG Tab PO SCH ×3 (10:27→21:03)
[2020-03-25] MEDS: Enoxaparin 40 MG/0.4 ML Syringe SUBCUT SCH (10:31)
[2020-03-25] MEDS: Simethicone 80 MG Tab.Chew PO SCH ×2 (10:33→21:03)
[2020-03-25] MEDS: Simvastatin 10 MG Tab PO SCH (10:33)
[2020-03-25] MEDS: Finasteride 5 MG Tab PO SCH (10:33)
[2020-03-25] MEDS: Tamsulosin 0.4 MG Cap.ER PO SCH (10:34)
[2020-03-25] MEDS: Baclofen 10 MG Tab PO SCH ×3 (10:34→21:03)
[2020-03-25] MEDS ORDERED: Meropenem 1 GM in Sodium Chloride 0.9% 100 ML IV SCH (11:00)
--- NOTE | 2020-03-25 11:27 | CR ---
Chest: Frontal view of the chest was obtained. Comparison: Prior chest x-ray of 03/24/20. Heart size is normal. Tortuous thoracic aorta is seen. Lungs are clear with no acute parenchymal change. Old fracture deformity is noted within the left clavicle which appears healed. Scoliosis is noted within the spine. Impression: 1. Findings as described above. 2. Nothing acute is appreciated on frontal chest x-ray. Diagnostic code #2 This report was dictated in MDT
[2020-03-25] MEDS: Meropenem 1 GM in Sodium Chloride 0.9% 100 ML IV SCH ×2 (12:26→18:08)
[2020-03-25] MEDS: Albuterol/Ipratropium 3.0-0.5 MG/3 ML Neb Soln NEB SCH ×2 (14:01→20:20)
[2020-03-25] MEDS: Dextrose 5%-0.45% NaCl 1,000 ML IV SCH (15:32)
[2020-03-25] MEDS: OLANZapine 5 MG Tab PO SCH (18:16)
[2020-03-25] MEDS ORDERED: Scopolamine 1.5 MG Transdermal Patch TRDERM SCH (21:00)
[2020-03-25] MEDS: Donepezil 10 MG Tab PO SCH (21:03)
[2020-03-25] MEDS: traZODone 50 MG Tab PO SCH (21:03)
[2020-03-26] MEDS: Albuterol/Ipratropium 3.0-0.5 MG/3 ML Neb Soln NEB SCH ×4 (02:34→20:27)
[2020-03-26] MEDS: Meropenem 1 GM in Sodium Chloride 0.9% 100 ML IV SCH (02:55)
[2020-03-26] MEDS: Pantoprazole 40 MG Tab.CR PO SCH (05:22)
[2020-03-26] MEDS: Levothyroxine 50 MCG Tab PO SCH (05:23)
[2020-03-26] MEDS: Dextrose 5%-0.45% NaCl 1,000 ML IV SCH (06:20)
[2020-03-26] MEDS: OXcarbazepine 300 MG Tab PO SCH ×3 (08:50→20:51)
[2020-03-26] MEDS: Finasteride 5 MG Tab PO SCH (08:50)
[2020-03-26] MEDS: Tamsulosin 0.4 MG Cap.ER PO SCH (08:51)
[2020-03-26] MEDS: Enoxaparin 40 MG/0.4 ML Syringe SUBCUT SCH (08:51)
[2020-03-26] MEDS: Simvastatin 10 MG Tab PO SCH (08:51)
[2020-03-26] MEDS: Simethicone 80 MG Tab.Chew PO SCH ×2 (08:51→20:51)
[2020-03-26] MEDS: Baclofen 10 MG Tab PO SCH ×3 (08:51→20:51)
--- NOTE | 2020-03-26 09:11 | PCM.PN ---
- General Info Date of Service: 03/26/20 Admission Dx/Problem (Free Text): Admission Diagnosis/Problem Admission Diagnosis/Problem Hypoxia Subjective Update: In to see Steve. He reports his stomach is feeling better. He was weaned off oxygen this AM. He did eat lunch today. Repeat CXR shows basilar atelectasis. His potassium was low and will be supplemented. Functional Status: Reports: Pain Controlled, Tolerating Diet, Urinating. Denies : Ambulating, New Symptoms - Review of Systems General: Reports: No Symptoms. Denies: Fever, Chills HEENT: Reports: No Symptoms, Sore Throat Pulmonary: Reports: No Symptoms, Other. Denies: Shortness of Breath, Cough, Sputum Cardiovascular: Reports: No Symptoms. Denies: Chest Pain Gastrointestinal: Reports: No Symptoms. Denies: Abdominal Pain, Diarrhea, Nausea, Vomiting Genitourinary: Reports: No Symptoms Musculoskeletal: Reports: No Symptoms Skin: Reports: No Symptoms Neurological: Reports: Confusion (baseline ) Psychiatric: Reports: No Symptoms - Patient Data Vitals - Most Recent: Last Vital Signs Temp 98.8 F 03/26/20 03:19 Pulse 74 03/26/20 03:19 Resp 18 03/26/20 03:19 BP 131/75 03/26/20 03:19 Pulse Ox 100 03/26/20 08:03 Weight - Most Recent: 156 lb 3.2 oz I&O - Last 24 Hours: Intake & Output 03/25/20 03/26/20 03/26/20 22:59 06:59 14:59 Intake Total 1900 940 Output Total 50 300 Balance 1850 640 Lab Results Last 24 Hours: Laboratory Results - last 24 hr 03/25/20 03/26/20 03/26/20 Range/Units 09:20 05:28 05:28 WBC 7.99 7.11 (4.23-9.07) K/mm3 RBC 4.77 4.31 L (4.63-6.08) M/mm3 Hgb 14.4 12.8 L D (13.7-17.5) gm/dl Hct 44.7 40.4 (40.1-51.0) % MCV 93.7 H 93.7 H (79.0-92.2) fl MCH 30.2 29.7 (25.7-32.2) pg MCHC 32.2 31.7 L (32.2-35.5) g/dl RDW Std Deviation 43.1 42.5 (35.1-43.9) fL Plt Count 175 160 L (163-337) K/mm3 MPV 10.6 10.7 (9.4-12.3) fl Neut % (Auto) 72.2 H 66.9 (34.0-67.9) % Lymph % (Auto) 14.8 L 17.0 L (21.8-53.1) % [place] % (Auto) 11.6 11.7 (5.3-12.2) % Eos % (Auto) 0.9 3.7 (0.8-7.0) Baso % (Auto) 0.4 0.6 (0.1-1.2) % Neut # (Auto) 5.77 H 4.76 (1.78-5.38) K/mm3 Lymph # (Auto) 1.18 L 1.21 L (1.32-3.57) K/mm3 [place] # (Auto) 0.93 H 0.83 H (0.30-0.82) K/mm3 Eos # (Auto) 0.07 0.26 (0.04-0.54) K/mm3 Baso # (Auto) 0.03 0.04 (0.01-0.08) K/mm3 Sodium 143 (136-145) mEq/L Potassium 3.2 L (3.5-5.1) mEq/L Chloride 107 (98-107) mEq/L Carbon Dioxide 28 (21-32) mEq/L Anion Gap 11.2 (5-15) BUN 18 (7-18) mg/dL Creatinine 0.8 (0.7-1.3) mg/dL Est Cr Clr Drug Dosing 72.11 mL/min Estimated GFR (MDRD) > 60 (>60) mL/min BUN/Creatinine Ratio 22.5 H (14-18) Glucose 109 (80-115) mg/dL Calcium 8.9 (8.5-10.1) mg/dL Magnesium 2.1 (1.8-2.4) mg/dl Total Bilirubin 0.6 (0.2-1.0) mg/dL AST 15 (15-37) U/L ALT 15 L (16-63) U/L Alkaline Phosphatase 105 (46-116) U/L Total Protein 6.1 L (6.4-8.2) g/dl Albumin 2.7 L (3.4-5.0) g/dl Globulin 3.4 gm/dL Albumin/Globulin Ratio 0.8 L (1-2) Vick Results Last 24 Hours: Microbiology 03/25/20 02:15 Aerobic Blood Culture - Preliminary Blood - Venous NO GROWTH AFTER 1 DAY Anaerobic Blood Culture - Preliminary NO GROWTH AFTER 1 DAY 03/25/20 02:25 Aerobic Blood Culture - Preliminary Blood - Venous - Lab Draw NO GROWTH AFTER 1 DAY Anaerobic Blood Culture - Final Med Orders - Current: Current Medications Albuterol (Proventil Neb Soln) 2.5 mg NEB Q2H PRN PRN Reason: Shortness of Breath Albuterol/Ipratropium (Duoneb 3.0-0.5 Mg/3 Ml) 3 ml NEB Q6HRRT [facility] Last Admin: 03/26/20 08:01 Dose: 3 ml Documented by: Baclofen (Lioresal) 10 mg PO TID [facility] Last Admin: 03/26/20 08:51 Dose: 10 mg Documented by: Bisacodyl (Dulcolax) 5 mg PO DAILY PRN PRN Reason: Constipation Dicyclomine HCl (Bentyl) 10 mg PO TID PRN PRN Reason: IBS Donepezil HCl (Aricept) 10 mg PO BEDTIME [facility] Last Admin: 03/25/20 21:03 Dose: 10 mg Documented by: Enoxaparin Sodium (Lovenox) 40 mg SUBCUT DAILY [facility] Last Admin: 03/26/20 08:51 Dose: 40 mg Documented by: Finasteride (Proscar) 5 mg PO DAILY [facility] Last Admin: 03/26/20 08:50 Dose: 5 mg Documented by: Meropenem 1 gm/ Sodium (Chloride) 100 mls @ 200 mls/hr IV Q8H [facility] Last Admin: 03/26/20 02:55 Dose: 200 mls/hr Documented by: Dextrose/Sodium Chloride (Dextrose 5%-1/2 Ns) 1,000 mls @ 75 mls/hr IV ASDIRECTED [facility] Last Admin: 03/26/20 06:20 Dose: 75 mls/hr Documented by: Levothyroxine Sodium (Synthroid) 50 mcg PO ACBREAKFAST [facility] Last Admin: 03/26/20 05:23 Dose: 50 mcg Documented by: Miscellaneous Information (Remove Patch) 1 ea TRDERM Q3D [facility] Olanzapine (Zyprexa) 10 mg PO QPM [facility] Last Admin: 03/25/20 18:16 Dose: 10 mg Documented by: Oxcarbazepine (Trileptal) 300 mg PO TID [facility] Last Admin: 03/26/20 08:50 Dose: 300 mg Documented by: Pantoprazole Sodium (Protonix) 40 mg PO ACBREAKFAST [facility] Last Admin: 03/26/20 05:22 Dose: 40 mg Documented by: Scopolamine (Transderm-Scop) 1.5 mg TRDERM Q3D [facility] Last Admin: 03/25/20 21:15 Dose: 1.5 mg Documented by: Senna/Docusate Sodium (Senna Plus) 1 tab PO BID [facility] Last Admin: 03/26/20 08:50 Dose: 1 tab Documented by: Simethicone (Simethicone) 80 mg PO BID [facility] Last Admin: 03/26/20 08:51 Dose: 80 mg Documented by: Simvastatin (Zocor) 10 mg PO DAILY [facility] Last Admin: 03/26/20 08:51 Dose: 10 mg Documented by: Tamsulosin HCl (Flomax) 0.4 mg PO DAILY [facility] Last Admin: 03/26/20 08:51 Dose: 0.4 mg Documented by: Trazodone HCl (Trazodone) 100 mg PO BEDTIME [facility] Last Admin: 03/25/20 21:03 Dose: 100 mg Documented by: Discontinued Medications Ceftriaxone Sodium 2 gm/ (Sodium Chloride) 100 mls @ 200 mls/hr IV ONETIME ONE Stop: 03/25/20 03:50 Last Admin: 03/25/20 06:53 Dose: Not Given Documented by: Ceftriaxone Sodium 2 gm/ (Sodium Chloride) 100 mls @ 200 mls/hr IV ONETIME ONE Stop: 03/25/20 03:54 Last Admin: 03/25/20 03:30 Dose: 200 mls/hr Documented by: Meropenem/Sodium Chloride 500 (mg/ Premix) 50 mls @ 100 mls/hr IV Q8H [facility] Last Admin: 03/25/20 04:49 Dose: 100 mls/hr Documented by: Sodium Chloride (Sodium Chloride 0.45%) 1,000 mls @ 125 mls/hr IV ASDIRECTED [facility] Last Admin: 03/25/20 06:52 Dose: 125 mls/hr Documented by: Meropenem 1 gm/ Sodium (Chloride) 100 mls @ 200 mls/hr IV Q8H DONNIE - Exam Quality Assessment: DVT Prophylaxis General: Alert, Cooperative, No Acute Distress HEENT: Pupils Equal, Pupils Reactive, Mucous Membr. Moist/[place] Neck: Supple, Trachea Midline Lungs: Clear to Auscultation, Normal Respiratory Effort Cardiovascular: Regular Rate, Regular Rhythm GI/Abdominal Exam: Normal Bowel Sounds, Soft, Non-Tender, No Distention (Male) Exam: Deferred Extremities: No Pedal Edema, Limited Range of Motion (baseline ), Other (Contractures ) Peripheral Pulses: 1+: Radial (L), Radial (R), Dorsalis Pedis (L), Dorsalis Pedis (R) Skin: Warm, Dry, Intact Neurological: No New Focal Deficit Psy/Mental Status: Alert Sepsis Event Note - Evaluation Sepsis Screening Result: No Definite Risk - Focused Exam Vital Signs: Vital Signs Temp Pulse Resp BP Pulse Ox Pulse Ox 03/26/20 08:03 100 03/26/20 03:19 98.8 F 74 18 131/75 97 03/26/20 02:34 88 L Date Exam was Performed: 03/26/20 Time Exam was Performed: 13:02 - Problem List & Annotations (1) Hypernatremia SNOMED Code(s): 006444013 Code(s): E87.0 - HYPEROSMOLALITY AND HYPERNATREMIA Status: Acute Priority: High Current Visit: Yes (2) Hypoxemia SNOMED Code(s): 677927901 Code(s): R09.02 - HYPOXEMIA Status: Acute Priority: High Current Visit: Yes (3) UTI (urinary tract infection) SNOMED Code(s): 19048441 Code(s): N39.0 - URINARY TRACT INFECTION, SITE NOT SPECIFIED Status: Acute Priority: High Current Visit: Yes Qualifiers: Urinary tract infection type: site unspecified Hematuria presence: without hematuria Qualified Code(s): N39.0 - Urinary tract infection, site not specified (4) Bladder mass SNOMED Code(s): 948856897 Code(s): N32.89 - OTHER SPECIFIED DISORDERS OF BLADDER Status: Chronic Priority: Medium Current Visit: No (5) History of venous thromboembolism SNOMED Code(s): 550985865 Code(s): Z86.718 - PERSONAL HISTORY OF OTHER VENOUS THROMBOSIS AND EMBOLISM Status: Acute Current Visit: Yes (6) HLD (hyperlipidemia) SNOMED Code(s): 61931432 Code(s): E78.5 - HYPERLIPIDEMIA, UNSPECIFIED Status: Acute Current Visit: Yes (7) Chronic constipation SNOMED Code(s): 120391218 Code(s): K59.09 - OTHER CONSTIPATION Status: Acute Current Visit: Yes (8) Hemorrhoids SNOMED Code(s): 42612197 Code(s): K64.9 - UNSPECIFIED HEMORRHOIDS Status: Acute Current Visit: Yes (9) BPH (benign prostatic hyperplasia) SNOMED Code(s): 709578632 Code(s): N40.0 - BENIGN PROSTATIC HYPERPLASIA WITHOUT LOWER URINRY TRACT SYMP Status: Acute Current Visit: Yes (10) Chronic renal insufficiency SNOMED Code(s): 756488207 Code(s): N18.9 - CHRONIC KIDNEY DISEASE, UNSPECIFIED Status: Acute Current Visit: Yes (11) Neurogenic bladder SNOMED Code(s): 722529032 Code(s): N31.9 - NEUROMUSCULAR DYSFUNCTION OF BLADDER, UNSPECIFIED Status: Acute Current Visit: Yes (12) Joint contracture SNOMED Code(s): 5460567 Code(s): M24.50 - CONTRACTURE, UNSPECIFIED JOINT Status: Acute Current Visit: Yes (13) Spastic hemiplegia SNOMED Code(s): 62432138 Code(s): G81.10 - SPASTIC HEMIPLEGIA AFFECTING UNSPECIFIED SIDE Status: Acute Current Visit: Yes (14) History of traumatic brain injury SNOMED Code(s): 01322663439383, 52475417182286 Code(s): Z87.820 - PERSONAL HISTORY OF TRAUMATIC BRAIN INJURY Status: Acute Current Visit: Yes (15) Cerebral palsy SNOMED Code(s): 724779556 Code(s): G80.9 - CEREBRAL PALSY, UNSPECIFIED Status: Acute Current Visit: Yes (16) History of seizure SNOMED Code(s): 040978230 Code(s): Z87.898 - PERSONAL HISTORY OF OTHER SPECIFIED CONDITIONS Status: Acute Current Visit: Yes (17) Bipolar disorder SNOMED Code(s): 57040371 Code(s): F31.9 - BIPOLAR DISORDER, UNSPECIFIED Status: Acute Current Visit: Yes (18) Dementia SNOMED Code(s): 55730699 Code(s): F03.90 - UNSPECIFIED DEMENTIA WITHOUT BEHAVIORAL DISTURBANCE Status: Acute Current Visit: Yes (19) Depression SNOMED Code(s): 11910515 Code(s): F32.9 - MAJOR DEPRESSIVE DISORDER, SINGLE EPISODE, UNSPECIFIED Status: Acute Current Visit: Yes (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 SNOMED Code(s): 60087548 Code(s): F65.2 - EXHIBITIONISM Status: Acute Current Visit: Yes (21) Insomnia SNOMED Code(s): 024299864 Code(s): G47.00 - INSOMNIA, UNSPECIFIED Status: Acute Current Visit: Yes (22) Hypothyroidism SNOMED Code(s): 17974459 Code(s): E03.9 - HYPOTHYROIDISM, UNSPECIFIED Status: Acute Current Visit: Yes (23) Dermatophytosis SNOMED Code(s): 56316448 Code(s): B35.9 - DERMATOPHYTOSIS, UNSPECIFIED Status: Acute Current Visit: Yes (24) Onychomycosis SNOMED Code(s): 721987257 Code(s): B35.1 - TINEA UNGUIUM Status: Acute Current Visit: Yes (25) Hypokalemia SNOMED Code(s): 35112712 Code(s): E87.6 - HYPOKALEMIA Status: Acute Priority: High Current Visit: Yes - Problem List Review Problem List Initiated/Reviewed/Updated: Yes - Plan Plan:: Complicated UTI * Patient with history of fever and tachycardia. * Requiring 3 L nasal cannula for oxygenation * No signs of sepsis * Lives in a long-term care facility/long term Plan * Continue Meropenem 1 g every 8 hours * Await urine and blood cultures. * Follow CBC Hypoxemia * Possibly secondary to aspiration, but normal chest x-ray at this time. * Weaned off of oxygen today * Patient with history of copious amounts of oral secretions * Repeat CXR shows basilar atelectasis Plan * Pulmonary toilet to improve secretions * Albuterol and ipratropium bromide nebulizers every 6 hours and albuterol nebulizer every 2 hours as needed * FiO2 to keep SPO2 greater than 92% * Continue home meds which includes scopolamine patch for secretions. Hypernatremia/dehydration; Improved * Sodium of 147 on presentation to the emergency department-> now 143 * Concerns for poor oral intake causing volume depletion and dehydration * Could be the cause of his tachycardia. 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 VTE prophylaxis with Lovenox CODE STATUS: DNR Disposition: Admit to floor. Likely discharge in 24-48 hours back to SNF
--- NOTE | 2020-03-26 09:24 | CR ---
Chest: 2 views of the chest were obtained. Comparison: Prior chest x-ray of 03/25/20. Heart size is stable. Tortuous thoracic aorta is noted. Mild atelectasis within the left base is seen. Lungs otherwise are clear. Bony structures are unchanged. Impression: 1. Mild left basilar atelectasis. 2. Other portions of the 2 view chest x-ray are stable. Diagnostic code #2 Study was dictated in [facility]
[2020-03-26] MEDS ORDERED: Meropenem 1,000 MG in Sodium Chloride 0.9% 100 ML IV SCH (11:00)
[2020-03-26] MEDS: Potassium Chloride 10 MEQ in Premix Bag 1 BAG IV SCH ×5 (11:27→16:34)
[2020-03-26] MEDS: Cephalexin 500 MG Cap PO SCH ×2 (16:27→20:50)
[2020-03-26] MEDS: OLANZapine 5 MG Tab PO SCH (17:45)
[2020-03-26] MEDS ORDERED: Potassium Chloride 20 MEQ Tab.ER PO ONE (18:00)
[2020-03-26] MEDS: Donepezil 10 MG Tab PO SCH (20:50)
[2020-03-26] MEDS: traZODone 50 MG Tab PO SCH (20:51)
[2020-03-27] MEDS: Albuterol/Ipratropium 3.0-0.5 MG/3 ML Neb Soln NEB SCH ×2 (03:24→08:27)
[2020-03-27] MEDS ORDERED: Bisacodyl 10 MG Supp RECTAL ONE (06:09)
[2020-03-27] MEDS: Pantoprazole 40 MG Tab.CR PO SCH (06:42)
[2020-03-27] MEDS: Levothyroxine 50 MCG Tab PO SCH (06:42)
[2020-03-27 08:11] VITALS: BP 100/61; PULSE 68
[2020-03-27] MEDS: Finasteride 5 MG Tab PO SCH (09:09)
[2020-03-27] MEDS: Simvastatin 10 MG Tab PO SCH (09:09)
[2020-03-27] MEDS: Tamsulosin 0.4 MG Cap.ER PO SCH (09:09)
[2020-03-27] MEDS: OXcarbazepine 300 MG Tab PO SCH (09:09)
[2020-03-27] MEDS: Baclofen 10 MG Tab PO SCH (09:09)
[2020-03-27] MEDS: Cephalexin 500 MG Cap PO SCH (09:10)
[2020-03-27] MEDS: Simethicone 80 MG Tab.Chew PO SCH (09:10)
--- NOTE | 2020-03-27 09:12 | PCM.DCSUM1 ---
Discharge Summary - Hospital Course HPI Initial Comments: 69-year-old male with history of TBI from [facility] presented to the emergency department early this morning secondary to a low-grade fever and hypoxemia. Patient has difficulty communicating secondary to his TBI and hearing loss. Much of the history was obtained through emergency department notes. Apparently patient was running a temperature of 99.6 at [facility] and he had increase in his heart rate and a decrease in his pulse ox. Patient required 2 L of oxygen via nasal cannula but continued to have oxygenation saturations in the low 90s. Patient was seen yesterday in the emergency department with a UTI and given 1 g Rocephin IM and sent home on Keflex. Yesterday morning his white count was 8.48 with 77.9% neutrophils and his C- reactive protein was 11. In the emergency department patient was found to be hypoxemic requiring 3 L to get his oxygen saturations above 92%. He had large amounts of respiratory secretions which apparently is chronic. Pulse was 106 with a temperature of 98.3. Respiratory rate of 17 and he looked comfortable. Have a white count of 7.74 this morning with 76.8% neutrophils and absolute neutrophil count of 5.94. No bands noted. C-reactive protein was 10.8 and lactic acid was 0.7. Patient was found to be slightly hyponatremic with a sodium of 147 and chloride of 110. Potassium was low normal at 3.5. Anion gap of 13.5. BUN was slightly elevated at 27 with a creatinine of 1.0 suggesting hypovolemia, and an estimated GFR of greater than 60. Liver enzymes were low. Albumin 3.1. proBNP was slightly elevated at 515. COVID screen was negative and MRSA screen was negative. Patient was initially given 2 more grams of Rocephin, but at my suggestion was started on meropenem. Chest x-ray showed no acute infiltrate. ABG: pH 7.42, PCO2 of 42.5, PO2 57, bicarb 27, oxygen saturation 85% on room air. UA continued to have significant signs of infection including WBC of 20-30 and many bacteria. Patient was then transferred to the floor for further treatment. Review of his previous emergency room visit in September [address] scan with a small intraluminal bladder mass. It is highly suspicious for a 1.3 cm transitional cell carcinoma. Diagnosis: Stroke: No - Discharge Data Discharge Date: 03/27/20 (Admit date: 03/25/20) Discharge Disposition: DC/Tfer to SNF 03 Condition: Good - Referral to Home Health Primary Care Physician: Joss De La Rosa MD - Discharge Diagnosis/Problem(s) (1) Hypernatremia SNOMED Code(s): 517272067 ICD Code: E87.0 - HYPEROSMOLALITY AND HYPERNATREMIA Status: Resolved Pr iority: High Current Visit: Yes (2) Hypoxemia SNOMED Code(s): 412631630 ICD Code: R09.02 - HYPOXEMIA Status: Resolved Priority: High Current Visit: Yes (3) UTI (urinary tract infection) SNOMED Code(s): 24459404 ICD Code: N39.0 - URINARY TRACT INFECTION, SITE NOT SPECIFIED Status: Acute Priority: High Current Visit: Yes Qualifiers: Urinary tract infection type: site unspecified Hematuria presence: without hematuria Qualified Code(s): N39.0 - Urinary tract infection, site not specified (4) Bladder mass SNOMED Code(s): 245695139 ICD Code: N32.89 - OTHER SPECIFIED DISORDERS OF BLADDER Status: Chronic Priority: Medium Current Visit: No (5) History of venous thromboembolism SNOMED Code(s): 918449118 ICD Code: Z86.718 - PERSONAL HISTORY OF OTHER VENOUS THROMBOSIS AND EMBOLISM Status: Chronic Priority: Medium Current Visit: Yes (6) HLD (hyperlipidemia) SNOMED Code(s): 79632760 ICD Code: E78.5 - HYPERLIPIDEMIA, UNSPECIFIED Status: Chronic Priority: Low Current Visit: No (7) Chronic constipation SNOMED Code(s): 645568516 ICD Code: K59.09 - OTHER CONSTIPATION Status: Chronic Priority: Low Current Visit: No (8) Hemorrhoids SNOMED Code(s): 95865237 ICD Code: K64.9 - UNSPECIFIED HEMORRHOIDS Status: Chronic Priority: Low Current Visit: No Qualifiers: Hemorrhoid type: unspecified Qualified Code(s): K64.9 - Unspecified hemorrhoids (9) BPH (benign prostatic hyperplasia) SNOMED Code(s): 245184405 ICD Code: N40.0 - BENIGN PROSTATIC HYPERPLASIA WITHOUT LOWER URINRY TRACT SYMP Status: Chronic Priority: Low Current Visit: No Qualifiers: Lower urinary tract symptom presence: unspecified whether lower urinary tract symptoms present Qualified Code(s): N40.0 - Benign prostatic hyperplasia without lower urinary tract symptoms (10) Chronic renal insufficiency SNOMED Code(s): 672343255 ICD Code: N18.9 - CHRONIC KIDNEY DISEASE, UNSPECIFIED Status: Chronic Priority: Medium Current Visit: Yes Qualifiers: Chronic kidney disease stage: unspecified stage Qualified Code(s): N18.9 - Chronic kidney disease, unspecified (11) Neurogenic bladder SNOMED Code(s): 892498168 ICD Code: N31.9 - NEUROMUSCULAR DYSFUNCTION OF BLADDER, UNSPECIFIED Status: Chronic Priority: Medium Current Visit: Yes (12) Joint contracture SNOMED Code(s): 6749823 ICD Code: M24.50 - CONTRACTURE, UNSPECIFIED JOINT Status: Chronic Priority: Medium Current Visit: Yes (13) Spastic hemiplegia SNOMED Code(s): 35054735 ICD Code: G81.10 - SPASTIC HEMIPLEGIA AFFECTING UNSPECIFIED SIDE Status: Chronic Priority: Medium Current Visit: Yes Qualifiers: Hemiplegia etiology: unspecified etiology Hemiplegia laterality: unspecified Qualified Code(s): G81.10 - Spastic hemiplegia affecting unspecified side (14) History of traumatic brain injury SNOMED Code(s): 59864848491293, 97261591451948 ICD Code: Z87.820 - PERSONAL HISTORY OF TRAUMATIC BRAIN INJURY Status: Chronic Priority: Medium Current Visit: Yes (15) Cerebral palsy SNOMED Code(s): 742581176 ICD Code: G80.9 - CEREBRAL PALSY, UNSPECIFIED Status: Chronic Priority: Medium Current Visit: Yes Qualifiers: Cerebral palsy type: unspecified type Qualified Code(s): G80.9 - Cerebral palsy, unspecified (16) History of seizure SNOMED Code(s): 847962020 ICD Code: Z87.898 - PERSONAL HISTORY OF OTHER SPECIFIED CONDITIONS Status: Chronic Priority: Medium Current Visit: No (17) Bipolar disorder SNOMED Code(s): 70475023 ICD Code: F31.9 - BIPOLAR DISORDER, UNSPECIFIED Status: Chronic Priority: Medium Current Visit: No Qualifiers: Active/Remission status: remission status unspecified Qualified Code(s): F31.9 - Bipolar disorder, unspecified (18) Dementia SNOMED Code(s): 00049332 ICD Code: F03.90 - UNSPECIFIED DEMENTIA WITHOUT BEHAVIORAL DISTURBANCE Status: Chronic Priority: Medium Current Visit: Yes Qualifiers: Dementia type: unspecified type Dementia behavioral disturbance: without behavioral disturbance Qualified Code(s): F03.90 - Unspecified dementia without behavioral disturbance (19) Depression SNOMED Code(s): 16761056 ICD Code: F32.9 - MAJOR DEPRESSIVE DISORDER, SINGLE EPISODE, UNSPECIFIED Status: Chronic Priority: Medium Current Visit: No Qualifiers: Depression Type: other depression Qualified Code(s): F32.89 - Other specified depressive episodes (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 SNOMED Code(s): 56290743 ICD Code: F65.2 - EXHIBITIONISM Status: Chronic Priority: Low Current Visit: No (21) Insomnia SNOMED Code(s): 628220097 ICD Code: G47.00 - INSOMNIA, UNSPECIFIED Status: Chronic Priority: Low Current Visit: No Qualifiers: Insomnia type: unspecified Qualified Code(s): G47.00 - Insomnia, unspecified (22) Hypothyroidism SNOMED Code(s): 04737719 ICD Code: E03.9 - HYPOTHYROIDISM, UNSPECIFIED Status: Chronic Priority: Medium Current Visit: No Qualifiers: Hypothyroidism type: unspecified Qualified Code(s): E03.9 - Hypothyroidism, unspecified (23) Dermatophytosis SNOMED Code(s): 70130119 ICD Code: B35.9 - DERMATOPHYTOSIS, UNSPECIFIED Status: Chronic Priority: Low Current Visit: No (24) Onychomycosis SNOMED Code(s): 744116953 ICD Code: B35.1 - TINEA UNGUIUM Status: Chronic Priority: Low Current Visit: No (25) Hypokalemia SNOMED Code(s): 45450625 ICD Code: E87.6 - HYPOKALEMIA Status: Resolved Priority: High Current Visit: Yes - Patient Summary/Data Consults: Consultations 03/25/20 13:50 OT Evaluation and Treatment [CONS] Routine PT Evaluation and Treatment [CONS] Routine 03/26/20 09:25 Consult to Case Management/Plane Runner [CONS] Routine 03/26/20 12:56 Consult to Respiratory Therapy [Respiratory Care Assess and Treatment] [CONS] Routine Labs Pending at D/C: None Recommended Follow-up Testing/Procedures: Follow-up with primary care provider within 5-7 days of discharge, sooner if needed. -Recommend repeat CBC, CMP, Magnesium at that appointment. Hospital Course: Steve Johns was admitted to the hospital floor for a UTI and hypoxia. On admission he was requiring 3L of O2. CXR showed nothing acute. Patient was having excessive secretions, which are reported as being his normal. He was frequently spitting saliva and had upper airway sounds consistent with excessive secretions. He was placed on scheduled duonebs with good results and his oxygen was able to be weaned down. He was discharged on 0.5-1L 02 PRN to keep saturations above 92%. Repeat CXRs He was noted to have a suggestive UTI on dipstick and his urine culture grew out proteus with good susceptibilities. Of note: the urine culture had been obtained from the UA on the day prior to this visit. He had been receiving Meropenem due to risk factors of being a SNF res ident, decreased mobility, and questionable bladder cancer. Once sensitivities were back he was switched to 500mg QID Keflex. No leukocytosis was noted throughout his stay. His potassium did decrease during his stay and was supplemented. MRSA screen was negative. COVID-19 screen was obtained on admission and just prior to discharge, with both being negative. Hgb did trend downward mildly - likely 2/2 IV fluid dilution. He was seen by PT/OT, who recommended return to SNF. He will be discharged today back to [facility] today. He was discharged on 5 more days of Keflex to bring his total days of treatment to 7. He was also discharged on 4 more days of Q8Hr scheduled duonebs. Home medications were otherwise continued. He should continue his prior diet restrictions including nectar thickened liquids and NDD2 diet. He was instructed to follow-up with his PCP within 5-7 days of discharge, sooner if needed. Recommend re-check a CBC, CMP and magnesium at that appointment. - Patient Instructions Diet, Other: NDD2, [place] thick. See dietary notes Activity: As Tolerated Driving: Do Not Drive Showering/Bathing: May Shower Notify Provider of: Fever, Increased Pain, Nausea and/or Vomiting Other/Special Instructions: Follow-up with primary care provider within 5-7 days of discharge, sooner if needed. Recommend re-check CBC, CMP, Magnesium at that visit. NDD2 diet. [place] thick liquids. Breads soaked. No straws, Alternate food with sis in between and to swallow before next bite. Chewck mouth for pocketing. Resume home medications as directed. Take all of your antibiotic until completion, even if you feel 100% better. Should symptoms return or worsen contact primary care provider or return to the Emergency Department. - Discharge Plan *PRESCRIPTION DRUG MONITORING PROGRAM REVIEWED*: No *COPY OF PRESCRIPTION DRUG MONITORING REPORT IN PATIENT JONNA: No Prescriptions/Med Rec: Albuterol/Ipratropium [DuoNeb 3.0-0.5 MG/3 ML] 3 ml NEB Q8HR #12 neb cephALEXin [Keflex] 500 mg PO QID #22 cap Home Medications: Home Meds Finasteride 5 mg PO DAILY 10/03/16 [History] Levothyroxine [Synthroid] 50 mcg PO ACBREAKFAST 10/03/16 [History] OLANZapine [ZyPREXA] 10 mg PO QPM 10/03/16 [History] Tamsulosin HCl [Flomax] 0.4 mg PO DAILY 10/03/16 [History] Baclofen 10 mg PO TID 09/06/19 [History] Donepezil HCl 10 mg PO BEDTIME 09/06/19 [History] OXcarbazepine [Trileptal] 300 mg PO TID 09/06/19 [History] Simethicone 80 mg PO BID 09/06/19 [History] atorvaSTATin [Lipitor] 10 mg PO DAILY 09/06/19 [History] traZODone HCl [Trazodone HCl] 100 mg PO BEDTIME 09/06/19 [History] Omeprazole 20 mg PO ACBREAKFAST 30 Days #30 cap.sr 09/07/19 [Rx] Mineral Oil/Petrolatum,White [Dermacerin] 1 dose TP TID PRN 09/08/19 [History] Dextromethorphan/guaiFENesin [Robitussin DM] 5 ml PO Q4H PRN 03/25/20 [History] Dicyclomine [Bentyl] 10 mg PO TID PRN 03/25/20 [History] Eucalyptus Oil/Menthol/Camphor [Vicks Vaporub Ointment] 50 gm TP TID 03/25/20 [History] Lactobacillus Acidophilus [Acidophilus Lactobacilli] 1 each PO DAILY 03/25/20 [History] Mineral Oil/Petrolatum,White [Dermacerin] 107 gm TP ASDIRECTED PRN 03/25/20 [History] Scopolamine 1 each TD Q3D 03/25/20 [History] bisacodyL [Bisacodyl] 5 mg PO DAILY PRN 03/25/20 [History] Albuterol/Ipratropium [DuoNeb 3.0-0.5 MG/3 ML] 3 ml NEB Q8HR #12 neb 03/27/20 [Rx] cephALEXin [Keflex] 500 mg PO QID #22 cap 03/27/20 [Rx] Oxygen Therapy Mode: Nasal Cannula Oxygen Flow Rate (L/min): 0.5 (PRN oxygen) Maintain SpO2% greater than: 92 Patient Handouts: Urinary Tract Infection, Adult, [id number] Referrals: Morro Henriquez MD [Physician] - 04/03/20 11:30 am (Please follow up with Dr. Henriquez on April 03 at 1130.) - Discharge Summary/Plan Comment DC Time >30 min.: Yes (45 mins ) - General Info Date of Service: 03/27/20 Admission Dx/Problem (Free Text: Admission Diagnosis/Problem Admission Diagnosis/Problem Hypoxia Functional Status: Reports: Pain Controlled, Tolerating Diet, Urinating. Denies: Ambulating (baseline ), New Symptoms - Review of Systems General: Reports: No Symptoms. Denies: Fever HEENT: Reports: No Symptoms Pulmonary: Reports: No Symptoms. Denies: Shortness of Breath Cardiovascular: Reports: No Symptoms. Denies: Chest Pain Gastrointestinal: Reports: No Symptoms, Constipation. Denies: Abdominal Pain, Diarrhea, Vomiting Genitourinary: Reports: No Symptoms Musculoskeletal: Reports: No Symptoms Skin: Reports: No Symptoms Neurological: Reports: Confusion (Baseline ), Pre-Existing Deficit, Difficulty Walking, Gait Disturbance - Patient Data Vitals - Most Recent: Last Vital Signs Temp 97.9 F 03/27/20 07:20 Pulse 68 03/27/20 07:20 Resp 20 03/27/20 07:20 BP 100/61 03/27/20 07:20 Pulse Ox 92 L 03/27/20 08:28 Weight - Most Recent: 158 lb 12.8 oz I&O - Last 24 hours: Intake & Output 06/03/27/20 03/27/20 22:59 06:59 14:59 Intake Total 1790 300 Output Total 100 200 Balance 1690 100 Lab Results - Last 24 hrs: Laboratory Results - last 24 hr 03/27/20 03/27/20 Range/Units 05:27 05:27 WBC 5.62 (4.23-9.07) K/mm3 RBC 4.19 L (4.63-6.08) M/mm3 Hgb 12.3 L (13.7-17.5) gm/dl Hct 38.9 L (40.1-51.0) % MCV 92.8 H (79.0-92.2) fl MCH 29.4 (25.7-32.2) pg MCHC 31.6 L (32.2-35.5) g/dl RDW Std Deviation 40.8 (35.1-43.9) fL Plt Count 192 (163-337) K/mm3 MPV 10.8 (9.4-12.3) fl Neut % (Auto) 57.7 (34.0-67.9) % Lymph % (Auto) 22.1 (21.8-53.1) % [place] % (Auto) 14.1 H (5.3-12.2) % Eos % (Auto) 5.2 (0.8-7.0) Baso % (Auto) 0.7 (0.1-1.2) % Neut # (Auto) 3.25 (1.78-5.38) K/mm3 Lymph # (Auto) 1.24 L (1.32-3.57) K/mm3 [place]win # (Auto) 0.79 (0.30-0.82) K/mm3 Eos # (Auto) 0.29 (0.04-0.54) K/mm3 Baso # (Auto) 0.04 (0.01-0.08) K/mm3 Sodium 142 (136-145) mEq/L Potassium 3.8 (3.5-5.1) mEq/L Chloride 107 (98-107) mEq/L Carbon Dioxide 29 (21-32) mEq/L Anion Gap 9.8 (5-15) BUN 9 (7-18) mg/dL Creatinine 0.8 (0.7-1.3) mg/dL Est Cr Clr Drug Dosing 72.09 mL/min Estimated GFR (MDRD) > 60 (>60) mL/min BUN/Creatinine Ratio 11.3 L (14-18) Glucose 99 (80-115) mg/dL Calcium 9.0 (8.5-10.1) mg/dL Magnesium 2.1 (1.8-2.4) mg/dl DOV Results - Last 24 hrs: Microbiology 03/25/20 02:15 Aerobic Blood Culture - Preliminary Blood - Venous NO GROWTH AFTER 2 DAYS Anaerobic Blood Culture - Preliminary NO GROWTH AFTER 2 DAYS 03/25/20 02:25 Aerobic Blood Culture - Preliminary Blood - Venous - Lab Draw NO GROWTH AFTER 2 DAYS Anaerobic Blood Culture - Final Med Orders - Current: Current Medications Albuterol (Proventil Neb Soln) 2.5 mg NEB Q2H PRN PRN Reason: Shortness of Breath Albuterol/Ipratropium (Duoneb 3.0-0.5 Mg/3 Ml) 3 ml NEB Q6HRRT [facility] Last Admin: 03/27/20 08:27 Dose: 3 ml Documented by: Baclofen (Lioresal) 10 mg PO TID [facility] Last Admin: 03/26/20 20:51 Dose: 10 mg Documented by: Bisacodyl (Dulcolax) 5 mg PO DAILY PRN PRN Reason: Constipation Cephalexin (Keflex) 500 mg PO QID [facility] Last Admin: 03/26/20 20:50 Dose: 500 mg Documented by: Dicyclomine HCl (Bentyl) 10 mg PO TID PRN PRN Reason: IBS Donepezil HCl (Aricept) 10 mg PO BEDTIME [facility] Last Admin: 03/26/20 20:50 Dose: 10 mg Documented by: Enoxaparin Sodium (Lovenox) 40 mg SUBCUT DAILY [facility] Last Admin: 03/26/20 08:51 Dose: 40 mg Documented by: Finasteride (Proscar) 5 mg PO DAILY [facility] Last Admin: 03/26/20 08:50 Dose: 5 mg Documented by: Levothyroxine Sodium (Synthroid) 50 mcg PO ACBREAKFAST [facility] Last Admin: 03/27/20 06:42 Dose: 50 mcg Documented by: Miscellaneous Information (Remove Patch) 1 ea TRDERM Q3D [facility] Olanzapine (Zyprexa) 10 mg PO QPM [facility] Last Admin: 03/26/20 17:45 Dose: 10 mg Documented by: Oxcarbazepine (Trileptal) 300 mg PO TID [facility] Last Admin: 03/26/20 20:51 Dose: 300 mg Documented by: Pantoprazole Sodium (Protonix) 40 mg PO ACBREAKFAST [facility] Last Admin: 03/27/20 06:42 Dose: 40 mg Documented by: Scopolamine (Transderm-Scop) 1.5 mg TRDERM Q3D [facility] Last Admin: 03/25/20 21:15 Dose: 1.5 mg Documented by: Senna/Docusate Sodium (Senna Plus) 1 tab PO BID [facility] Last Admin: 03/26/20 20:51 Dose: 1 tab Documented by: Simethicone (Simethicone) 80 mg PO BID [facility] Last Admin: 03/26/20 20:51 Dose: 80 mg Documented by: Simvastatin (Zocor) 10 mg PO DAILY [facility] Last Admin: 03/26/20 08:51 Dose: 10 mg Documented by: Tamsulosin HCl (Flomax) 0.4 mg PO DAILY [facility] Last Admin: 03/26/20 08:51 Dose: 0.4 mg Documented by: Trazodone HCl (Trazodone) 100 mg PO BEDTIME [facility] Last Admin: 03/26/20 20:51 Dose: 100 mg Documented by: Discontinued Medications Bisacodyl (Dulcolax) 10 mg RECTAL ONETIME ONE Stop: 03/27/20 06:10 Last Admin: 03/27/20 06:42 Dose: 10 mg Documented by: Ceftriaxone Sodium 2 gm/ (Sodium Chloride) 100 mls @ 200 mls/hr IV ONETIME ONE Stop: 03/25/20 03:50 Last Admin: 03/25/20 06:53 Dose: Not Given Documented by: Ceftriaxone Sodium 2 gm/ (Sodium Chloride) 100 mls @ 200 mls/hr IV ONETIME ONE Stop: 03/25/20 03:54 Last Admin: 03/25/20 03:30 Dose: 200 mls/hr Documented by: Meropenem/Sodium Chloride 500 (mg/ Premix) 50 mls @ 100 mls/hr IV Q8H [facility] Last Admin: 03/25/20 04:49 Dose: 100 mls/hr Documented by: Sodium Chloride (Sodium Chloride 0.45%) 1,000 mls @ 125 mls/hr IV ASDIRECTED [facility] Last Admin: 03/25/20 06:52 Dose: 125 mls/hr Documented by: Meropenem 1 gm/ Sodium (Chloride) 100 mls @ 200 mls/hr IV Q8H [facility] Last Admin: 03/26/20 02:55 Dose: 200 mls/hr Documented by: Meropenem 1 gm/ Sodium (Chloride) 100 mls @ 200 mls/hr IV Q8H [facility] Dextrose/Sodium Chloride (Dextrose 5%-1/2 Ns) 1,000 mls @ 75 mls/hr IV ASDIRECTED [facility] Last Admin: 03/26/20 06:20 Dose: 75 mls/hr Documented by: Meropenem 1,000 mg/ Sodium (Chloride) 100 mls @ 200 mls/hr IV Q8H [facility] Last Admin: 03/26/20 11:26 Dose: 200 mls/hr Documented by: Potassium Chloride 10 meq/ (Premix) 100 mls @ 100 mls/hr IV Q1H [facility] Stop: 03/26/20 15:59 Last Admin: 03/26/20 16:34 Dose: Not Given Documented by: Potassium Chloride (Klor-Con M20) 40 meq PO ONETIME ONE Stop: 03/26/20 18:01 Last Admin: 03/26/20 17:45 Dose: 40 meq Documented by: - Exam Quality Assessment: Reports: Supplemental Oxygen (0.5L), DVT Prophylaxis General: Reports: Alert, Cooperative, No Acute Distress. Denies: Oriented HEENT: Reports: Pupils Equal, Pupils Reactive Neck: Reports: Supple, Trachea Midline Lungs: Reports: Normal Respiratory Effort, Decreased Breath Sounds. Denies: Rales, Rhonchi, Wheezing Cardiovascular: Reports: Regular Rate, Regular Rhythm GI/Abdominal Exam: Normal Bowel Sounds, Soft, Non-Tender, No Distention (Male) Exam: Deferred Rectal (Males) Exam: Deferred Back Exam: Reports: Normal Inspection, Decreased Range of Motion Extremities: Normal Capillary Refill, Pedal Edema, Limited Range of Motion, Other (Contractures ) Skin: Reports: Warm, Dry, Intact Neurological: Reports: No New Focal Deficit Psy/Mental Status: Reports: Alert
[2020-03-27] MEDS: Enoxaparin 40 MG/0.4 ML Syringe SUBCUT SCH (09:15)
== END 2020-03-27 12:33 | DRG 690 ==
LOC: JD.ED 01:30 → JD.MS 04:42
PROVIDERS: ADMIT Family Medicine; ATTEND Family Medicine
DX: N39.0 Urinary tract infection, site not specified (principal); E87.0 Hyperosmolality and hypernatremia; R79.82 Elevated C-reactive protein (CRP); M31.9 Necrotizing vasculopathy, unspecified; H52.10 Myopia, unspecified eye; H52.4 Presbyopia; G81.10 Spastic hemiplegia affecting unspecified side; R09.02 Hypoxemia; C67.9 Malignant neoplasm of bladder, unspecified; E78.5 Hyperlipidemia, unspecified; N31.9 Neuromuscular dysfunction of bladder, unspecified; K59.09 Other constipation; K64.9 Unspecified hemorrhoids; F32.9 Major depressive disorder, single episode, unspecified; N40.0 Benign prostatic hyperplasia without lower urinary tract symptoms; Z20.828 Contact with and (suspected) exposure to other viral communicable diseases; G80.9 Cerebral palsy, unspecified; N18.9 Chronic kidney disease, unspecified; M24.50 Contracture, unspecified joint; F03.90 Unspecified dementia, unspecified severity, without behavioral disturbance, psychotic disturbance, mood disturbance, and anxiety; F32.89 Other specified depressive episodes; F65.2 Exhibitionism; G47.00 Insomnia, unspecified; N32.89 Other specified disorders of bladder; E03.9 Hypothyroidism, unspecified; E78.00 Pure hypercholesterolemia, unspecified; E86.0 Dehydration; Z66 Do not resuscitate; B35.9 Dermatophytosis, unspecified; B35.1 Tinea unguium; E87.6 Hypokalemia; B96.4 Proteus (mirabilis) (morganii) as the cause of diseases classified elsewhere; Z87.820 Personal history of traumatic brain injury; Z86.718 Personal history of other venous thrombosis and embolism; Z88.6 Allergy status to analgesic agent; Z87.898 Personal history of other specified conditions; Z88.8 Allergy status to other drugs, medicaments and biological substances; Z79.890 Hormone replacement therapy; Z79.899 Other long term (current) drug therapy
CPT/HCPCS: 36415; 36600 ×2; 71045; 80053; 81001; 82803; 83605; 83880; 85025; 86140; 87040 ×2; 96365; 99285; J0696; J7050; U0002; 71046; 71046-26; 80048; 83735; 87641; 94640; 94761; 97162-GP; 97167-GO; 97530-GO; 97530-GP; A9270-GY; J1650; J2185; J3480; J7030; J7042; J7620-GY

== ENCOUNTER 2022-07-12 12:19 | Emergency (ER) | payer MEDICARE, MEDICAID ==
[2022-07-12 12:42] VITALS: BP 136/90; PULSE 95
[2022-07-12] MEDS ORDERED: Sodium Chloride 0.9% 10 ML Syringe FLUSH PRN (12:48)
[2022-07-12] MEDS ORDERED: Sodium Chloride 0.9% 1,000 ML IV STA (13:30)
[2022-07-12 13:40] LABS: ESTIMATED GFR 73 mL/min (>60)
[2022-07-12] MEDS ORDERED: cefTRIAXone 2 GM in Sodium Chloride 0.9% 100 ML IV ONE (16:30)
== END 2022-07-12 17:22 ==
LOC: JD.ED 12:19
DX: N39.0 Urinary tract infection, site not specified (principal); E03.9 Hypothyroidism, unspecified; E78.00 Pure hypercholesterolemia, unspecified; Z88.6 Allergy status to analgesic agent; Z91.018 Allergy to other foods; Z79.899 Other long term (current) drug therapy
CPT/HCPCS: 36415; 71045; 80053; 81001; 85025; 86140; 96361; 96365; 99283; J0696; J3490; J7030